=== PATIENT | male | born 1970 | race Caucasian/White ===

== ENCOUNTER 2020-12-12 14:58 | Observation (INO) ==
[2020-12-12] MEDS ORDERED: ONDANSETRON INJ 2 MG/ML 2 ML VIAL IV STA (17:18)
[2020-12-12] MEDS ORDERED: fentaNYL citrate 100 MCG/2 ML VIAL IV STA (17:18)
[2020-12-12] MEDS ORDERED: SODIUM CHLORIDE 0.9% 1000ML 1,000 ML IV ONE (17:18)
--- NOTE | 2020-12-12 17:23 | Emergency Department Note ---
Impression & Plan Abdominal pain, Nausea & vomiting, Acute urinary retention, Hypokalemia ED Provider Note Provider: Bill Eagle MD DATE OF SERVICE: 12/12/2020 CHIEF COMPLAINT: Abdominal pain, nausea and vomiting HISTORY OF PRESENT ILLNESS: Patient is a 50-year-old gentleman reporting a past medical history of enlarged prostate and renal injury presenting here today stating over the past 2 days he has a gradual onset of some diffuse abdominal pain. Reports significant nausea and vomiting and states he has not been able to eat or drink much over the last day or 2. Patient reports some myalgias and muscle cramps. Denies significant chest pain or shortness of breath. Patient denies fever cough. Patient states he feels similar when he had acute renal injury before; reports this happened when he was in [place]. 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 Has not been able to sleep well overnight due to the pain. Patient states he is not moved his bowels or had flatulence over the last 36 hours. Patient does have a distant history of a bowel obstruction. Patient does report some abdominal distention. REVIEW OF SYSTEMS: A total of 10 review of systems was obtained and negative except as stated above in the HPI. 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 NECK: Trachea midline. Supple. ENT: Mucous membranes pink and moist. LUNGS: Airway patent. No retractions. Breath sounds clear HEART: Regular bradycardic rate and rhythm. No chest wall tenderness ABDOMEN: Soft with some mild diffuse abdominal tenderness with a slightly protruding umbilicus. BACK: No midline tenderness, No bilateral flank tenderness. SKIN: Acyanotic, warm, dry, without rashes EXTREMITIES: Without swelling, tenderness or deformity NEUROLOGICAL: No focal deficits. No aphasia. No facial droop or slurred speech. Normal strength and tone in the extremities. Sensation to gross touch normal. Ambulatory. EK bpm sinus bradycardia no PVCs or PACs. No acute ST segment elevation or depression with some baseline artifact. QTC 433. CONTINUOUS CARDIAC MONITORING: was ordered and showed a heart rate of 50s-70s bpm in normal sinus rhythm to sinus bradycardia Patient's laboratory studies and imaging reviewed. Differential includes Appendicitis, testicular torsion, infections, diverticulitis, UTI, obstruction, mesenteric ischemia, aortic pathology, inflammatory bowel disease, renal colic, PUD, pancreatitis, biliary pathology, hernia, volvulus, constipation, as well as other pathologies. IMPRESSION/MEDICAL DECISION MAKING: Patient is complaining of nausea vomiting and feeling very thirsty as well as some diffuse abdominal pain. No trauma reported lightheadedness. Patient reports a history of some TRIPP in the past as well as bowel obstruction. Lower suspicion for pulmonary or cardiac etiology but EKG and troponin were sent. No anemia but mild leukocytosis 12.9 is noted. Given some IV fluid hydration as well as some pain medication and IV fluid here initially. CK checked to exclude rhabdomyolysis given his complaint of diffuse muscle pains. Chest x-ray completed without evidence of acute pathology per radiology such as pneumonia, pleural effusion, pulmonary edema, pneumothorax. Blood work does note some hypokalemia of 2.8 but no severe acute renal injury. No evidence of acute hepatitis or pancreatitis based on labs. Some IV potassium supplementation was ordered. CT scan of the abdomen pelvis shows per radiology significant urinary distention. Some prostamegaly is noted. The appendix is mildly dilated but does not appear inflamed and radiology feels appendicitis unlikely and clinically I agree. No evidence of bowel obstruction likely today. Given the patient does have evidence of a significantly large bladder. Marie cath will be placed. Patient states he has had this before in the past. Patient still with episodes of dry heaves given a bit of Reglan as well as Pepcid for some heartburn complaints. Question if majority of symptoms are related to urinary retention. Given the significant mount of urine to be drained (750ml and still draining) and has hypokalemia with recurrent nausea issues feel that observation overnight would be prudent. Hospitalist to be contacted. DIAGNOSIS: Abdominal pain, acute urinary retention, nausea and vomiting, hypokalemia DISPOSITION: Hospitalist will evaluate Patient was agreeable with this plan. Discussed return precautions and advised follow up. Past Med/Surg History Social History Smoking Status: Current every day smoker Feels Safe at Home: Yes Allergies Allergies Allergy/AdvReac Type Severity Reaction Status Date / Time [id number] Allergy Unknown Uncoded 04/18/02 16:21 N Allergy Unknown Uncoded 04/18/02 16:21 Results & Data (ED) Vital Signs Vital Signs - 24 hr 12/12/20 15:07 12/12/20 19:20 Temperature 36.9 C Temperature Source Temporal Artery Scan Pulse Rate 56 L 52 L Respiratory Rate 16 14 Blood Pressure 124/83 Blood Pressure Mean 96 Pulse Oximetry 100 95 Sepsis Recent Fever Within 48 Hours No Sepsis New/Unexplained Change in Mental Status No Sepsis Action Taken by Nursing No Action Required Laboratory Data Result diagrams: 12/12/20 17:35 12/12/20 17:35 Lab Results 12/12/20 12/12/20 12/12/20 Range/Units 17:34 17:34 17:35 WBC 12.97 H (4.8-10.8) K/uL RBC 5.46 (4.7-6.1) M/uL Hgb 16.3 (14.0-18.0) g/dL Hct 46.4 (42-52) % MCV 85.0 (80-100) fL MCH 29.9 (25-34) pg MCHC 35.1 (32-36) g/dL RDW Std Deviation 41.6 (36.4-46.3) fL RDW Coeff of Yesy 13.4 (11.5-14.5) % Plt Count 299 (130-400) K/uL MPV 9.5 (7.4-10.4) fL Immature Gran % (Auto) 0.2 % Neut % (Auto) 88.0 % Lymph % (Auto) 6.5 % Otero % (Auto) 5.2 % Eos % (Auto) 0.0 % Baso % (Auto) 0.1 % Neut # (Auto) 11.41 H (1.4-6.5) K/uL Lymph # (Auto) 0.84 L (1.2-3.4) K/uL Otero # (Auto) 0.68 H (0.11-0.59) K/uL Eos # (Auto) 0.00 (0-0.5) K/uL Baso # (Auto) 0.01 (0-0.2) K/uL Immature Gran # (Auto) 0.03 H (0.00-0.02) K/uL Sodium (136-145) mmol/L Potassium (3.5-5.1) mmol/L Chloride (98-107) mmol/L Carbon Dioxide (21-32) mmol/L Anion Gap (3-11) BUN (7-18) mg/dl Creatinine (0.6-1.4) mg/dl Est Cr Clr Drug Dosing ml/min Est GFR ( Amer) ml/min Est GFR (Non-Af Amer) ml/min BUN/Creatinine Ratio (10-20) Glucose (70-99) mg/dl Calcium (8.5-10.1) mg/dl Magnesium (1.8-2.4) mg/dl Total Bilirubin (0.2-1) mg/dl AST (15-37) U/L ALT (12-78) U/L Alkaline Phosphatase (45-117) U/L Total Creatine Kinase (39-308) U/L Troponin I (0-0.045) ng/ml Total Protein (6.4-8.2) gm/dl Albumin (3.4-5.0) gm/dl Globulin (2.5-4.0) gm/dl Albumin/Globulin Ratio (0.9-2) Lipase (73-393) U/L COVID-19 Eval Order Covid19 at [facility] SARS-CoV-2 (PCR) NEGATIVE (Negative) 12/12/20 Range/Units 17:35 WBC (4.8-10.8) K/uL RBC (4.7-6.1) M/uL Hgb (14.0-18.0) g/dL Hct (42-52) % MCV (80-100) fL MCH (25-34) pg MCHC (32-36) g/dL RDW Std Deviation (36.4-46.3) fL RDW Coeff of Yesy (11.5-14.5) % Plt Count (130-400) K/uL MPV (7.4-10.4) fL Immature Gran % (Auto) % Neut % (Auto) % Lymph % (Auto) % Otero % (Auto) % Eos % (Auto) % Baso % (Auto) % Neut # (Auto) (1.4-6.5) K/uL Lymph # (Auto) (1.2-3.4) K/uL Otero # (Auto) (0.11-0.59) K/uL Eos # (Auto) (0-0.5) K/uL Baso # (Auto) (0-0.2) K/uL Immature Gran # (Auto) (0.00-0.02) K/uL Sodium 138 (136-145) mmol/L Potassium 2.8 L (3.5-5.1) mmol/L Chloride 99 (98-107) mmol/L Carbon Dioxide 30 (21-32) mmol/L Anion Gap 9.0 (3-11) BUN 22 H (7-18) mg/dl Creatinine 1.11 (0.6-1.4) mg/dl Est Cr Clr Drug Dosing 70.0 ml/min Est GFR ( Amer) 89.9 ml/min Est GFR (Non-Af Amer) 77.6 ml/min BUN/Creatinine Ratio 20.0 (10-20) Glucose 153 H (70-99) mg/dl Calcium 9.7 (8.5-10.1) mg/dl Magnesium 2.5 H (1.8-2.4) mg/dl Total Bilirubin 0.6 (0.2-1) mg/dl AST 13 L (15-37) U/L ALT 19 (12-78) U/L Alkaline Phosphatase 137 H (45-117) U/L Total Creatine Kinase 87 (39-308) U/L Troponin I < 0.015 (0-0.045) ng/ml Total Protein 8.5 H (6.4-8.2) gm/dl Albumin 4.3 (3.4-5.0) gm/dl Globulin 4.2 H (2.5-4.0) gm/dl Albumin/Globulin Ratio 1.0 (0.9-2) Lipase 47 L (73-393) U/L COVID-19 Eval Order SARS-CoV-2 (PCR) (Negative) Administered Medications Discontinued Medications Fentanyl Citrate (Fentanyl Citrate 100 Mcg/2 Ml Vial) 50 mcg IV NOW STA Stop: 12/12/20 17:19 Last Admin: 12/12/20 18:08 Dose: 50 mcg Documented by: [id number] Sodium Chloride (Nss 1000ml) 1,000 mls @ 999 mls/hr IV .Q1H1M ONE Stop: 12/12/20 18:18 Last Infusion: 12/12/20 19:15 Dose: 0 mls/hr Documented by: [id number] Admin: 12/12/20 18:08 Dose: 999 mls/hr Documented by: [id number] Potassium Chloride (K Kevin / Wtr) 10 meq in 100 mls @ 100 mls/hr IV ONE ONE Stop: 12/12/20 19:05 Last Infusion: 12/12/20 19:34 Dose: 0 mls/hr Documented by: [id number] Admin: 12/12/20 18:11 Dose: 100 mls/hr Documented by: [id number] Ioversol (Optiray 320 100ml) 82 ml IV ONCE ONE Stop: 12/12/20 19:09 Last Admin: 12/12/20 19:09 Dose: 82 ml Documented by: [id number] Metoclopramide HCl (Metoclopramide Hcl Inj 5 Mg/Ml 2 Ml Vial) 5 mg IV ONE ONE Stop: 12/12/20 19:17 Last Admin: 12/12/20 19:21 Dose: 5 mg Documented by: [id number] Ondansetron HCl (Ondansetron Inj 2 Mg/Ml 2 Ml Vial) 4 mg IV NOW STA Stop: 12/12/20 17:19 Last Admin: 12/12/20 18:08 Dose: 4 mg Documented by: [id number] Imaging Data Radiologist's Impression: Chest X-Ray 12/12/20 17:18 XR chest 1V portable HISTORY: 50 years-old Male Resp sx c/w COVID-19 acute shortness of breath COMPARISON: None TECHNIQUE: Portable AP view of the chest FINDINGS: Cardiomediastinal and hilar silhouettes are within normal limits. No pneumothorax, pleural effusion, airspace consolidation or overt pulmonary edema. Degenerative changes of the shoulders and spine. IMPRESSION: No acute process. ACT 112: Negative or not required by law. The above report was generated using voice recognition software. It may contain grammatical, syntax or spelling errors. Electronically signed by: Jordan Rodarte M.D. 12/12/2020 5:56 PM Abdomen/Pelvis CT 12/12/20 18:[address] WITH IV CONTRAST CT DOSE: 263.45 mGy.cm HISTORY: Acute generalized abdominal pain with nausea and vomiting abd pain, n/v TECHNIQUE: Multiaxial CT images of the abdomen and pelvis were performed following the IV administration of 82 cc of Optiray, A dose lowering technique was utilized adhering to the principles of ALARA. COMPARISON STUDY: Chest radiograph of same day. FINDINGS: Clear lung bases. The imaged inferior cardiac chambers are unremarkable with coronary artery calcifications. The spleen, pancreas, gallbladder and liver appear unremarkable. There are several scattered tiny subcentimeter hypodensities of the liver which are too small to characterize however suggests probable cysts. Patency of the hepatic and portal veins. Mild thickening of the adrenal glands suggestive of hyperplasia. Unremarkable kidneys. No hydronephrosis. 11 mm hypodense focus of the inferior pole left kidney suggestive of a cyst. There is marked urinary bladder distention which measures over 20 cm in length. The prostate is heterogeneous and mildly enlarged. There is an 11 mm calculus within the dependent urinary bladder lumen. Atherosclerosis of the abdominal aorta. No adenopathy. Distended air and debris filled stomach. Mild colonic diverticulosis. No bowel obstruction or bowel wall thickening. The appendix is dilated at 9 mm however is fluid- filled and appears noninflamed. Unremarkable soft tissues. Degenerative changes of the spine, pelvis and hips. Severe right femoral acetabular osteophytes. IMPRESSION: 1. Prostamegaly with marked urinary bladder distention compatible with bladder outlet obstruction. Urinary bladder catheterization recommended. 2. Urinary bladder calculus. 3. The appendix is mildly dilated however is air-filled and appears noninflamed. Acute appendicitis is considered unlikely. 4. No bowel obstruction or bowel wall thickening. 5. Severe osteoarthritis of the right hip ACT 112: Negative or not required by law. The above report was generated using voice recognition software. It may contain grammatical, syntax or spelling errors. Electronically signed by: Jordan Rodarte M.D. 12/12/2020 7:34 PM Discharge Plan Visit Data Chief Complaint: Abdominal Pain Stated Complaint: AB PAIN ED Provider: Bill Eagle Discharge Problem: Abdominal pain, Nausea & vomiting, Acute urinary retention, Hypokalemia Patient Disposition: Being Evaluated by Hospitalist Forms Stand Alone Forms: [facility] Referrals Referrals: Dylan Bhatti MD [Primary Care Provider] - Discharge Problem: Abdominal pain Qualifiers: Abdominal location: generalized Qualified Code(s): R10.84 - Generalized abdominal pain Nausea & vomiting Qualifiers: Vomiting type: unspecified Vomiting Intractability: intractable Qualified Code(s): R11.2 - Nausea with vomiting, unspecified
[2020-12-12 17:46] LABS: Basophils # (auto) 0.01 K/uL (0-0.2); Basophils % (auto) 0.1 %; Hematocrit (blood only) 46.4 % (42-52); Hemoglobin 16.3 g/dL (14.0-18.0); Immature Granulocytes # (auto) 0.03 K/uL (0.00-0.02); Immature Granulocytes % (auto) 0.2 %; Lymphocytes # (auto) 0.84 K/uL (1.2-3.4); Lymphocytes % (auto) 6.5 %; Mean Corpuscular Hemoglobin 29.9 pg (25-34); Mean Corpuscular Hgb Conc 35.1 g/dL (32-36); Mean Platelet Volume 9.5 fL (7.4-10.4); Monocytes # (auto) 0.68 K/uL (0.11-0.59); Monocytes % (auto) 5.2 %; Neutrophils # (auto) 11.41 K/uL (1.4-6.5); Platelet Count 299 K/uL (130-400); RDW Coefficient of Variation 13.4 % (11.5-14.5); RDW Standard Deviation 41.6 fL (36.4-46.3); Red Blood Count 5.46 M/uL (4.7-6.1); White Blood Count 12.97 K/uL (4.8-10.8)
--- NOTE | 2020-12-12 17:57 | XRay Report ---
XR chest 1V portable HISTORY: 50 years-old Male Resp sx c/w COVID-19 acute shortness of breath COMPARISON: None TECHNIQUE: Portable AP view of the chest FINDINGS: Cardiomediastinal and hilar silhouettes are within normal limits. No pneumothorax, pleural effusion, airspace consolidation or overt pulmonary edema. Degenerative changes of the shoulders and spine. IMPRESSION: No acute process. ACT 112: Negative or not required by law. The above report was generated using voice recognition software. It may contain grammatical, syntax o r spelling errors. Electronically signed by: Jordan Rodarte M.D. 12/12/2020 5:56 PM
[2020-12-12 18:02] LABS: Alanine Aminotransferase 19 U/L (12-78); Albumin Level 4.3 gm/dl (3.4-5.0); Aspartate Aminotransferase 13 U/L (15-37); Blood Urea Nitrogen 22 mg/dl (7-18); Calcium 9.7 mg/dl (8.5-10.1); Carbon Dioxide 30 mmol/L (21-32); Chloride 99 mmol/L (98-107); Est GFR (African American) 89.9 ml/min; Est GFR (Non-African American) 77.6 ml/min; Glucose 153 mg/dl (70-99); Lipase 47 U/L (73-393); Magnesium 2.5 mg/dl (1.8-2.4); Potassium 2.8 mmol/L (3.5-5.1); Sodium 138 mmol/L (136-145)
[2020-12-12] MEDS ORDERED: POTASSIUM CHLORIDE / WTR 10 MEQ/100 ML PLCT IV ONE ×2 (18:06→19:48)
[2020-12-12 18:07] LABS: Alkaline Phosphatase 137 U/L (45-117); Bilirubin,Total 0.6 mg/dl (0.2-1); Creatine Kinase 87 U/L (39-308); Globulin 4.2 gm/dl (2.5-4.0); Total Protein 8.5 gm/dl (6.4-8.2); Troponin I < 0.015 ng/ml (0-0.045)
[2020-12-12] MEDS ORDERED: OPTIRAY 320 100ml IV ONE (19:08)
[2020-12-12] MEDS ORDERED: METOCLOPRAMIDE HCL INJ 5 MG/ML 2 ML VIAL IV ONE (19:16)
--- NOTE | 2020-12-12 19:35 | CT Scan Report ---
ABDOMEN AND PELVIS CT WITH IV CONTRAST CT DOSE: 263.45 mGy.cm HISTORY: Acute generalized abdominal pain with nausea and vomiting abd pain, n/v TECHNIQUE: Multiaxial CT images of the abdomen and pelvis were performed following the IV administrat ion of 82 cc of Optiray, A dose lowering technique was utilized adhering to the principles of ALARA. COMPARISON STUDY: Chest radiograph of same day. FINDINGS: Clear lung bases. The imaged inferior cardiac chambers are unremarkable with coronary arter y calcifications. The spleen, pancreas, gallbladder and liver appear unremarkable. There are several scattered tiny subcentimeter hypodensities of the liver which are too small to characterize however s uggests probable cysts. Patency of the hepatic and portal veins. Mild thickening of the adrenal gland s suggestive of hyperplasia. Unremarkable kidneys. No hydronephrosis. 11 mm hypodense focus of the inferior pole left kidney sugge stive of a cyst. There is marked urinary bladder distention which measures over 20 cm in length. The prostate is heterogeneous and mildly enlarged. There is an 11 mm calculus within the dependent urinar y bladder lumen. Atherosclerosis of the abdominal aorta. No adenopathy. Distended air and debris fill ed stomach. Mild colonic diverticulosis. No bowel obstruction or bowel wall thickening. The appendix is dilated at 9 mm however is fluid-filled and appears noninflamed. Unremarkable soft tissues. Degene rative changes of the spine, pelvis and hips. Severe right femoral acetabular osteophytes. IMPRESSION: 1. Prostamegaly with marked urinary bladder distention compatible with bladder outlet obstruction. Ur inary bladder catheterization recommended. 2. Urinary bladder calculus. 3. The appendix is mildly dilated however is air-filled and appears noninflamed. Acute appendicitis i s considered unlikely. 4. No bowel obstruction or bowel wall thickening. 5. Severe osteoarthritis of the right hip ACT 112: Negative or not required by law. The above report was generated using voice recognition software. It may contain grammatical, syntax o r spelling errors. Electronically signed by: Jordan Rodarte M.D. 12/12/2020 7:34 PM
[2020-12-12] MEDS ORDERED: POTASSIUM CHLORIDE PWD 20 MEQ PACK PO STA (20:52)
[2020-12-12] MEDS ORDERED: PROMETHAZINE 12.5 MG/50.5 ML BAG IV STA (20:52)
--- NOTE | 2020-12-12 20:53 | History & Physical Report ---
Date of Service December 12, 2020 Assessment & Plan (1) Hypokalemia: Plan: Secondary to emesis, poor p.o. intake from urinary bladder distention secondary to prostatomegaly Hyperglycemia rule out DM Ongoing tobacco abuse OBS Medical telemetry Replace potassium Initiate Flomax Continue Marie catheter Urology consult Re: Urinary retention/prostatomegaly Check hemoglobin A1c Nicotine patch as needed DVT prophylaxis. Lovenox subcu Full code Text document was generated using [employer] voice recognition software. It may contain grammatical or spelling errors. Kindly contact undersigned for clarification of any documentation item in question. History of Present Illness Chief Complaint: Abdominal pain Primary Care Provider: None History obtained from patient and records. Medical history significant for BPH, ongoing tobacco abuse. Patient has known for about 5 years of prostate enlargement. Urinary retention noted during [id number] confinements for hernia issues. Prostatic enlargement noted as incidental finding on a prior CAT scan as per patient. No hematuria symptoms. Not taking any medications as he has not seen a PCP for a few years now because of insurance issues. 2 days history of achy diffuse abdominal pain associated nausea, emesis. Usual urinary retention. No chest pain, no S OB. No fever, no chills. At the ER, Marie catheter inserted with note of bladder outlet obstruction on CAT scan. Patient currently more comfortable. 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 Allergies Allergy/AdvReac Type Severity Reaction Status Date / Time No Known Allergies Allergy Verified 12/12/20 21:03 Home Medications Medication Instructions Recorded Confirmed Type No Known Home Medications 12/12/20 12/12/20 History Past Med/Surg History Social History Smoking Status: Current every day smoker Cigarettes Per Day: 1 PPD (Camel); Second Hand Exposure: Yes; Tobacco Cessation Education Requested by Patient: No Hx Alcohol Use: No Hx Substance Use: Yes Preferred Language: Estonian Communication Ability: Effective Beliefs That Will Affect Care: None Current Living Situation: Alone Current Living Situation Comment: Lives alone in apartment Other Information That Helps Us Care for You: No Feels Safe at Home: Yes Safety Concerns: Feels Safe At This Time Assistive Devices: None Assistive Devices Comment: Pt. Supervision in room at this time Review of Systems Review of Systems: As per HPI, all 10 systems reviewed, all other ROS negative Physical Exam Physical Exam: GENERAL: Slightly uncomfortable, no respiratory distress SKIN: Normal color, warm HEENT: [place] palpebral conjunctivae, no ptosis, dry buccal mucosa NECK : Supple, no tenderness CHEST : CTA, no tenderness HEART : Bradycardic, no obvious murmurs ABDOMEN: Some distention, minimal hypogastric tenderness EXTREMITIES : No LE swelling/tenderness, no other conspicuous deformities noted NEUROLOGIC : Coherent, no facial asymmetry, no other gross focality Results & Data Results & Data ([facility]) Vital Signs (Past 12 Hours) Vital Signs Temp Pulse Resp BP Pulse Ox 12/12/20 19:20 52 L 14 95 12/12/20 15:07 36.9 C 56 L 16 124/83 100 Laboratory Results Laboratory Results WBC 12.97 K/uL (4.8-10.8) H 12/12/20 17:35 RBC 5.46 M/uL (4.7-6.1) 12/12/20 17:35 Hgb 16.3 g/dL (14.0-18.0) 12/12/20 17:35 Hct 46.4 % (42-52) 12/12/20 17:35 MCV 85.0 fL (80-100) 12/12/20 17:35 MCH 29.9 pg (25-34) 12/12/20 17:35 MCHC 35.1 g/dL (32-36) 12/12/20 17:35 RDW Std Deviation 41.6 fL (36.4-46.3) 12/12/20 17:35 RDW Coeff of Yesy 13.4 % (11.5-14.5) 12/12/20 17:35 Plt Count 299 K/uL (130-400) 12/12/20 17:35 MPV 9.5 fL (7.4-10.4) 12/12/20 17:35 Immature Gran % (Auto) 0.2 % 12/12/20 17:35 Neut % (Auto) 88.0 % 12/12/20 17:35 Lymph % (Auto) 6.5 % 12/12/20 17:35 Cataño % (Auto) 5.2 % 12/12/20 17:35 Eos % (Auto) 0.0 % 12/12/20 17:35 Baso % (Auto) 0.1 % 12/12/20 17:35 Neut # (Auto) 11.41 K/uL (1.4-6.5) H 12/12/20 17:35 Lymph # (Auto) 0.84 K/uL (1.2-3.4) L 12/12/20 17:35 Cataño # (Auto) 0.68 K/uL (0.11-0.59) H 12/12/20 17:35 Eos # (Auto) 0.00 K/uL (0-0.5) 12/12/20 17:35 Baso # (Auto) 0.01 K/uL (0-0.2) 12/12/20 17:35 Immature Gran # (Auto) 0.03 K/uL (0.00-0.02) H 12/12/20 17:35 Sodium 138 mmol/L (136-145) 12/12/20 17:35 Potassium 2.8 mmol/L (3.5-5.1) L 12/12/20 17:35 Chloride 99 mmol/L (98-107) 12/12/20 17:35 Carbon Dioxide 30 mmol/L (21-32) 12/12/20 17:35 Anion Gap 9.0 (3-11) 12/12/20 17:35 BUN 22 mg/dl (7-18) H 12/12/20 17:35 Creatinine 1.11 mg/dl (0.6-1.4) 12/12/20 17:35 Est Cr Clr Drug Dosing 70.0 ml/min 12/12/20 17:35 Est GFR ( Amer) 89.9 ml/min 12/12/20 17:35 Est GFR (Non-Af Amer) 77.6 ml/min 12/12/20 17:35 BUN/Creatinine Ratio 20.0 (10-20) 12/12/20 17:35 Glucose 153 mg/dl (70-99) H 12/12/20 17:35 Calcium 9.7 mg/dl (8.5-10.1) 12/12/20 17:35 Magnesium 2.5 mg/dl (1.8-2.4) H 12/12/20 17:35 Total Bilirubin 0.6 mg/dl (0.2-1) 12/12/20 17:35 AST 13 U/L (15-37) L 12/12/20 17:35 ALT 19 U/L (12-78) 12/12/20 17:35 Alkaline Phosphatase 137 U/L (45-117) H 12/12/20 17:35 Total Creatine Kinase 87 U/L (39-308) 12/12/20 17:35 Troponin I < 0.015 ng/ml (0-0.045) 12/12/20 17:35 Total Protein 8.5 gm/dl (6.4-8.2) H 12/12/20 17:35 Albumin 4.3 gm/dl (3.4-5.0) 12/12/20 17:35 Globulin 4.2 gm/dl (2.5-4.0) H 12/12/20 17:35 Albumin/Globulin Ratio 1.0 (0.9-2) 12/12/20 17:35 Lipase 47 U/L (73-393) L 12/12/20 17:35 COVID-19 Eval Order Covid19 at [facility] 12/12/20 17:34 SARS-CoV-2 (PCR) NEGATIVE (Negative) 12/12/20 17:34 Impressions Chest X-Ray 12/12/20 17:18 XR chest 1V portable HISTORY: 50 years-old Male Resp sx c/w COVID-19 acute shortness of breath COMPARISON: None TECHNIQUE: Portable AP view of the chest FINDINGS: Cardiomediastinal and hilar silhouettes are within normal limits. No pneumothorax, pleural effusion, airspace consolidation or overt pulmonary edema. Degenerative changes of the shoulders and spine. IMPRESSION: No acute process. ACT 112: Negative or not required by law. The above report was generated using voice recognition software. It may contain grammatical, syntax or spelling errors. Electronically signed by: Jordan Rodarte M.D. 12/12/2020 5:56 PM Abdomen/Pelvis CT 12/12/20 18:[address] WITH IV CONTRAST CT DOSE: 263.45 mGy.cm HISTORY: Acute generalized abdominal pain with nausea and vomiting abd pain, n/v TECHNIQUE: Multiaxial CT images of the abdomen and pelvis were performed following the IV administration of 82 cc of Optiray, A dose lowering technique was utilized adhering to the principles of ALARA. COMPARISON STUDY: Chest radiograph of same day. FINDINGS: Clear lung bases. The imaged inferior cardiac chambers are unremarkable with coronary artery calcifications. The spleen, pancreas, gallbladder and liver appear unremarkable. There are several scattered tiny subcentimeter hypodensities of the liver which are too small to characterize however suggests probable cysts. Patency of the hepatic and portal veins. Mild thickening of the adrenal glands suggestive of hyperplasia. Unremarkable kidneys. No hydronephrosis. 11 mm hypodense focus of the inferior pole left kidney suggestive of a cyst. There is marked urinary bladder distention which measures over 20 cm in length. The prostate is heterogeneous and mildly enlarged. There is an 11 mm calculus within the dependent urinary bladder lumen. Atherosclerosis of the abdominal aorta. No adenopathy. Distended air and debris filled stomach. Mild colonic diverticulosis. No bowel obstruction or bowel wall thickening. The appendix is dilated at 9 mm however is fluid- filled and appears noninflamed. Unremarkable soft tissues. Degenerative changes of the spine, pelvis and hips. Severe right femoral acetabular osteophytes. IMPRESSION: 1. Prostamegaly with marked urinary bladder distention compatible with bladder outlet obstruction. Urinary bladder catheterization recommended. 2. Urinary bladder calculus. 3. The appendix is mildly dilated however is air-filled and appears noninflamed. Acute appendicitis is considered unlikely. 4. No bowel obstruction or bowel wall thickening. 5. Severe osteoarthritis of the right hip ACT 112: Negative or not required by law. The above report was generated using voice recognition software. It may contain grammatical, syntax or spelling errors. Electronically signed by: Jordan Rodarte M.D. 12/12/2020 7:34 PM Diagnostic Findings EKG as per my interpretation rate 50, sinus bradycardia, normal axis, diffuse T wave flattening
[2020-12-12] MEDS ORDERED: TAMSULOSIN HCL 0.4 MG CAP PO ONE (20:56)
[2020-12-12] MEDS ORDERED: POTASSIUM CHLORIDE 40 MEQ in SODIUM CHLORIDE 0.9% 1000ML 1,000 ML IV ONE (20:59)
[2020-12-12] MEDS ORDERED: KETOROLAC TROMETHAMINE 15 MG/ML VIAL IV PRN (22:29)
[2020-12-12] MEDS ORDERED: IBUPROFEN 200 MG TAB PO PRN (22:29)
[2020-12-12] MEDS ORDERED: PROMETHAZINE HCL 12.5 MG in SODIUM CHLORIDE 0.9% 50 ML IV PRN (22:29)
[2020-12-12] MEDS ORDERED: ACETAMINOPHEN 325 MG TAB PO PRN (22:29)
[2020-12-12] MEDS: NICOTINE 21 MG/24 HR TDSY TD SCH (23:17)
[2020-12-12] MEDS ORDERED: METOCLOPRAMIDE HCL INJ 5 MG/ML 2 ML VIAL IV PRN (23:26)
[2020-12-13] MEDS ORDERED: POTASSIUM CHLORIDE PWD 20 MEQ PACK PO ONE (01:00)
[2020-12-13] MEDS: NICOTINE 21 MG/24 HR TDSY TD SCH (08:05)
[2020-12-13 08:36] LABS: Basophils # (auto) 0.01 K/uL (0-0.2); Basophils % (auto) 0.1 %; Eosinophils # (auto) 0.01 K/uL (0-0.5); Eosinophils % (auto) 0.1 %; Hematocrit (blood only) 38.6 % (42-52); Hemoglobin 13.3 g/dL (14.0-18.0); Immature Granulocytes # (auto) 0.02 K/uL (0.00-0.02); Immature Granulocytes % (auto) 0.1 %; Lymphocytes # (auto) 2.28 K/uL (1.2-3.4); Lymphocytes % (auto) 14.5 %; Mean Corpuscular Hemoglobin 29.4 pg (25-34); Mean Corpuscular Hgb Conc 34.5 g/dL (32-36); Mean Corpuscular Volume 85.2 fL (80-100); Mean Platelet Volume 9.4 fL (7.4-10.4); Monocytes # (auto) 1.52 K/uL (0.11-0.59); Monocytes % (auto) 9.7 %; Neutrophils % (auto) 75.5 %; Platelet Count 249 K/uL (130-400); RDW Coefficient of Variation 13.4 % (11.5-14.5); Red Blood Count 4.53 M/uL (4.7-6.1); White Blood Count 15.74 K/uL (4.8-10.8)
[2020-12-13 09:01] LABS: BUN Creatinine Ratio 21.4 (10-20); Calcium 8.7 mg/dl (8.5-10.1); Creatinine Clr Calc Pharmacy 79.5 ml/min; Est GFR (African American) 109.9 ml/min; Est GFR (Non-African American) 94.8 ml/min; Potassium 3.2 mmol/L (3.5-5.1)
--- NOTE | 2020-12-13 09:58 | Urology Consultation ---
Date of Consultation December 13, 2020 Assessment & Plan (1) Acute urinary retention: (2) Bladder stone: 50-year-old male who presented acutely with severely distended bladder and urinary retention. Suspect this is chronic as he reports several years of poor emptying and a history of Marie catheter placement. This is likely due to bladder outlet obstruction but he has never received an appropriate work-up. Recommend maintain Marie catheter for minimum 2 weeks due to severe distention Recommend urinalysis and urine culture if concerns on UA for infection Monitor for postobstructive diuresis. Characterized by at least 200 cc of urine output for 2 consecutive hours or more than 3 L in a 24-hour period. Can allow patient to drink to thirst for volume replacement. If requires IV fluid replacement, should be limited to no more than 75% of the prior 1 to 2 hours of urine production. I will schedule a follow-up appointment with him in clinic for void trial and to discuss management of his bladder and bladder calculus. Did discuss that he may have some permanent damage due to chronic obstruction and he may need to learn intermittent catheterization as opposed to undergoing a bladder outlet obstruction procedure or in conjunction with that. -Urology to sign off. Please call with any questions or concerns. History of Present Illness Reason for Consultation: Urinary retention, bladder calculus Attending Physician: Leonides Bello MD History of Present Illness 50-year-old male with a history of urinary retention with previous catheter placements who presented to the emergency department on 12/12/2020 due to general malaise. He was afebrile with stable vitals. Labs were significant for a mild leukocytosis of 12.97, creatinine of 1.1, and hypokalemia of 2.8.. CT scan was performed which revealed a significantly distended bladder with a bladder stone. A Marie catheter was placed. He was admitted to the medicine service. Urology was consulted for urinary retention. Patient reports he is feeling better today. Catheter is draining without issue. White blood cell count has slightly risen to 15 but creatinine has down trended. Hypokalemia slightly improved to 3.2. He reports he has had urinary retention before with catheters. He denies any dysuria, hematuria or urgency. He does endorse frequency and nocturia 2-3 times per night. He has to Valsalva maneuver to empty his bladder and does not feel as if he completely empties his bladder. He believes he may have seen a urologist several years back but was only told he had enlarged prostate. He has never been counseled on bladder outlet obstruction or any procedure. He does not take any Flomax and finasteride. He is not had any previous urologic surgeries. He has no history of urologic malignancies. He does smoke cigarettes and marijuana. 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 Allergies Allergy/AdvReac Type Severity Reaction Status Date / Time No Known Allergies Allergy Verified 12/12/20 21:03 Home Medications Medication Instructions Recorded Confirmed Type No Known Home Medications 12/12/20 12/12/20 History Patient History Social History Smoking Status: Current every day smoker Cigarettes Per Day: 1 PPD (Camel); Second Hand Exposure: Yes; Tobacco Cessation Education Requested by Patient: No Hx Alcohol Use: No Hx Substance Use: Yes Preferred Language: Czech Communication Ability: Effective Beliefs That Will Affect Care: None Current Living Situation: Alone Current Living Situation Comment: Lives alone in apartment Other Information That Helps Us Care for You: No Feels Safe at Home: Yes Safety Concerns: Feels Safe At This Time Assistive Devices: None Assistive Devices Comment: Pt. Supervision in room at this time Review of Systems Review of Systems: 14 point review of systems negative outside of what is listed above in HPI Physical Exam Physical Exam: General: Alert and oriented, no acute distress HEENT: Normocephalic, mucous membranes moist Cardiovascular: Regular rate Pulmonary: Nonlabored respirations Abdomen: Nondistended, nontender : Marie catheter draining clear yellow urine Extremities: Moves all 4 spontaneously Neuro: No gross deficits Skin: Warm, dry, no rashes noted Results & Data ([facility]) Vital Signs (Past 12 Hours) Vital Signs Temp Pulse Pulse Resp BP Pulse Ox Pulse Ox 12/13/20 07:50 36.8 C 65 18 130/72 97 12/13/20 07:18 77 12/13/20 04:00 36.9 C 64 20 114/61 97 12/12/20 23:24 53 L 12/12/20 22:30 37 C 59 L 18 136/72 96 12/12/20 22:29 37 C 59 L 16 136/72 96 96 PG Care Time/CCT Total # of Minutes Spent Total Time Spent with Patient: Total time spent is greater than 50% in coordination of care (as documented) at patient's floor/unit and/or counseling patient: Coding Level of Care Code 62946 Inpt Consult Level 5 Diagnoses Acute urinary retention R33.8 Bladder stone N21.0
--- NOTE | 2020-12-13 11:58 | Electrocardiogram Report ---
Test Reason : Blood Pressure : / mmHG Vent. Rate : 050 BPM Atrial Rate : 050 BPM P-R Int : 132 ms QRS Dur : 072 ms QT Int : 476 ms P-R-T Axes : 055 000 -11 degrees QTc Int : 433 ms Poor data quality, interpretation may be adversely affected Sinus bradycardia with sinus arrhythmia Septal infarct , age undetermined Abnormal ECG No previous ECGs available Confirmed by Hans Paez ([id number]) on 12/13/2020 11:58:39 AM Referred By: REFERRED SELF Confirmed By:Hans Paez
--- NOTE | 2020-12-13 15:11 | Hospitalist Progress Note ---
Date of Service December 13, 2020 Assessment & Plan (1) Acute urinary retention: Plan: History of BPH for the last 2 years or so Prior hospitalization with acute retention in [place] Has not been taking any medication and was admitted with acute urinary retention and may be complicated by bladder stone Appreciate urology input and recommendation Status post Marie catheter and will be there for about 2 weeks as per urologist He has been feeling much better and will follow up as an outpatient following discharge We will check urine for infection (2) Hypokalemia: Plan: Secondary to emesis, poor p.o. intake from urinary bladder distention secondary to prostatomegaly Potassium level is less than 3 Received adequate replacement and will be checked tomorrow (3) Bladder stone: Plan: Likely complicating bladder outlet obstruction Management as per urologist (4) Prostatic hypertrophy: Plan: Flomax has been added Status post Marie catheter Hyperglycemia rule out DM Hemoglobin A1c is pending Ongoing tobacco abuse Nicotine patch as needed DVT prophylaxis. Lovenox subcu Full code Plan: Likely discharge tomorrow Will need PCP appointment as an outpatient Urologist will make their own appointment in 2 weeks Admission and Anticipated Discharge Date Admission Date: December 12, 2020 Subjective 12/13/2020 The patient was seen and examined in medical telemetry unit He has been feeling much better following urinary catheter and his nausea has improved a lot Denies any fever and chills. Any abdominal pain, nausea and or vomiting Review of Systems Review of Systems: All systems reviewed and are unremarkable except as noted below Physical Exam Physical Exam: Lying in bed comfortably Constitutional: well developed, well nourished and average body habitus; not ill appearing Eyes: PERRL, conjunctivae normal, anicteric sclerae ENMT: external ear and nose normal, oropharynx normal Neck: trachea midline, no thyromegaly Respiratory: no respiratory distress and no cough Auscultation: lungs clear to auscultation bilaterally Cardiovascular: Rate/Rhythm: regular rate and regular rhythm; not tachycardic Heart Sounds: normal S1 and normal S2; no murmur Extremities: no edema Gastrointestinal (Abdomen): Inspection/Auscultation: normal bowel sounds; abdomen not distended Percussion/Palpation: abdomen soft; abdomen nontender Musculoskeletal: No acute arthritis in any joint Neurologic: Alert, awake and oriented x3. No focal sensory and motor deficit appreciated Genitourinary: Has urinary catheter in situ Lymphatic: no cervical or axillary lymphadenopathy Results & Data Results & Data ([facility]) Vital Signs (Past 12 Hours) Vital Signs Temp Pulse Pulse Resp BP Pulse Ox 12/13/20 11:44 36.8 C 57 L 18 101/58 L 98 12/13/20 07:50 36.8 C 65 18 130/72 97 12/13/20 07:18 77 12/13/20 04:00 36.9 C 64 20 114/61 97 Laboratory Results Short CBC 12/12/20 12/13/20 Range/Units 17:35 07:57 WBC 12.97 H 15.74 H (4.8-10.8) K/uL Hgb 16.3 13.3 L D (14.0-18.0) g/dL Hct 46.4 38.6 L (42-52) % Plt Count 299 249 (130-400) K/uL BMP 12/12/20 12/13/20 17:35 07:57 Sodium 138 140 Potassium 2.8 L 3.2 L Chloride 99 106 Carbon Dioxide 30 27 BUN 22 H 20 H Creatinine 1.11 0.94 Glucose 153 H 94 Calcium 9.7 8.7 Cardiac Enzymes 12/12/20 Range/Units 17:35 Total Creatine Kinase 87 (39-308) U/L Troponin I < 0.015 (0-0.045) ng/ml Liver Function 12/12/20 Range/Units 17:35 Total Bilirubin 0.6 (0.2-1) mg/dl AST 13 L (15-37) U/L ALT 19 (12-78) U/L Alkaline Phosphatase 137 H (45-117) U/L Albumin 4.3 (3.4-5.0) gm/dl Medications Administered Current Inpatient Medications Acetaminophen (Acetaminophen 325 Mg Tab) 650 mg PO Q4H PRN PRN Reason: Pain or Fever Stop: 01/11/21 22:28 Promethazine HCl 12.5 mg/ (Sodium Chloride) 50.5 mls @ 202 mls/hr IV Q6H PRN PRN Reason: Nausea And Vomiting Stop: 01/11/21 22:28 Last Infusion: 12/13/20 05:19 Dose: Infused Documented by: Ibuprofen (Ibuprofen 200 Mg Tab) 200 mg PO Q6H PRN PRN Reason: Mild Pain Stop: 01/11/21 22:28 Ketorolac Tromethamine (Ketorolac Tromethamine 15 Mg/Ml Vial) 15 mg IV Q6H PRN PRN Reason: Pain Stop: 12/17/20 22:28 Last Admin: 12/13/20 01:32 Dose: 15 mg Documented by: Metoclopramide HCl (Metoclopramide Hcl Inj 5 Mg/Ml 2 Ml Vial) 5 mg IV Q6H PRN PRN Reason: nv Stop: 01/11/21 23:25 Last Admin: 12/12/20 23:42 Dose: 5 mg Documented by: Miscellaneous (Remove Nicoderm Patch) 1 ea N/A [id number] [facility] Stop: 01/12/21 08:58 Last Admin: 12/13/20 12:32 Dose: 1 ea Documented by: Nicotine (Nicotine 21 Mg/24 Hr Tdsy) 21 mg TD QAM [facility] Stop: 01/11/21 22:49 Last Admin: 12/13/20 08:05 Dose: 21 mg Documented by: Tamsulosin HCl (Tamsulosin Hcl 0.4 Mg Cap) 0.4 mg PO HS [facility] Stop: 01/12/21 20:59
[2020-12-13] MEDS ORDERED: TAMSULOSIN HCL 0.4 MG CAP PO SCH (21:00)
[2020-12-13 22:19] LABS: Appearance Urine Clear (Clear); Bacteria Urine Automated Negative (Negative); Bilirubin Urine Negative (Negative); Blood Urine Trace (Negative); Cast Urine Automated 0 /lpf (0-5); Color Urine Yellow; Glucose Urine UA Negative (Negative); Ketones Urine Negative (Negative); Leukocyte Esterase Urine 1+ (Negative); Nitrite Urine Negative (Negative); Protein Urine Negative (Negative); RBC Urine Automated 0-4 /hpf (0-4); Specific Gravity Urine 1.009 (1.000-1.030); Urobilinogen Urine Negative (Negative)
[2020-12-14 06:35] LABS: Basophils # (auto) 0.02 K/uL (0-0.2); Basophils % (auto) 0.2 %; Eosinophils # (auto) 0.07 K/uL (0-0.5); Eosinophils % (auto) 0.8 %; Hematocrit (blood only) 39.5 % (42-52); Hemoglobin 13.1 g/dL (14.0-18.0); Immature Granulocytes # (auto) 0.02 K/uL (0.00-0.02); Immature Granulocytes % (auto) 0.2 %; Lymphocytes # (auto) 1.95 K/uL (1.2-3.4); Lymphocytes % (auto) 21.1 %; Mean Corpuscular Hemoglobin 28.9 pg (25-34); Mean Corpuscular Hgb Conc 33.2 g/dL (32-36); Mean Corpuscular Volume 87.2 fL (80-100); Mean Platelet Volume 9.4 fL (7.4-10.4); Monocytes # (auto) 1.01 K/uL (0.11-0.59); Monocytes % (auto) 10.9 %; Neutrophils # (auto) 6.19 K/uL (1.4-6.5); Neutrophils % (auto) 66.8 %; Platelet Count 228 K/uL (130-400); RDW Coefficient of Variation 13.3 % (11.5-14.5); RDW Standard Deviation 43.1 fL (36.4-46.3); Red Blood Count 4.53 M/uL (4.7-6.1); White Blood Count 9.26 K/uL (4.8-10.8)
[2020-12-14 06:59] LABS: BUN Creatinine Ratio 12.3 (10-20); Calcium 8.3 mg/dl (8.5-10.1); Est GFR (African American) 119.7 ml/min; Est GFR (Non-African American) 103.3 ml/min; Potassium 3.3 mmol/L (3.5-5.1)
[2020-12-14 08:17] LABS: Estimated Average Glucose 117 mg/dl; Hemoglobin A1C 5.7 % (4.5-5.6)
[2020-12-14] MEDS: NICOTINE 21 MG/24 HR TDSY TD SCH (08:50)
--- NOTE | 2020-12-14 12:56 | Discharge Summary ---
Date of Service December 14, 2020 Admission HPI Per Admitting Provider History obtained from patient and records. Medical history significant for BPH, ongoing tobacco abuse. Patient has known for about 5 years of prostate enlargement. Urinary retention noted during [id number]-[id number] confinements for hernia issues. Prostatic enlargement noted as incidental finding on a prior CAT scan as per patient. No hematuria symptoms. Not taking any medications as he has not seen a PCP for a few years now because of insurance issues. 2 days history of achy diffuse abdominal pain associated nausea, emesis. Usual urinary retention. No chest pain, no S OB. No fever, no chills. At the ER, Day catheter inserted with note of bladder outlet obstruction on CAT scan. Patient currently more comfortable. 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 Admission Exam Per Admitting Provider GENERAL: Slightly uncomfortable, no respiratory distress SKIN: Normal color, warm HEENT: [place] palpebral conjunctivae, no ptosis, dry buccal mucosa NECK : Supple, no tenderness CHEST : CTA, no tenderness HEART : Bradycardic, no obvious murmurs ABDOMEN: Some distention, minimal hypogastric tenderness EXTREMITIES : No LE swelling/tenderness, no other conspicuous deformities noted NEUROLOGIC : Coherent, no facial asymmetry, no other gross focality Principal Diagnosis Acute urinary retention Discharge Exam General: A&Ox3 HENT: NCAT, MMM, EOMI Eyes: PERRLA Neck: Supple, normal range of motion CVS: normal rate and rhythm Resp: b/l good breath sounds Abdomen: Soft, ND/NT, +BS Extremities: absence of any edema Neuro: face symmetric, strength grossly equal, no focal deficit Skin: warm and dr MSK: no joint swelling/erythema day catheter in place Discharge Data Allergies Allergy/AdvReac Type Severity Reaction Status Date / Time No Known Allergies Allergy Verified 12/12/20 21:03 Consultations 12/12/20 19:50 ED Decision to Admit Stat 12/12/20 22:29 Consult Urology Routine Ordered Studies 12/12/20 18:04 CT abd pelvis IV con only Stat Hospital Course (1) Hypokalemia: Acute urinary retention Hypokalemia Bladder stone Patient is a 50-year-old male who was admitted with a distended bladder and urine retention. Day catheter was placed. Urology was consulted neurology recommended to have the patient follow-up as an outpatient patient was discharged with a Day catheter was obtained which was negative denies any dys uria or concern for UTI of discharge patient was doing okay. Hemodynamically he was doing stable. Patient was discharged in stable condition. Total Time Total Time Spent Total Time Spent (In Minutes): 35 Discharge Plan Discharge Items Patient Disposition: Home - Self-Care Reason For Visit: HYPOKALEMIA Discharge Diagnosis: Acute urinary retention: Activity: Resume your previous activity Non-emergency contact: Primary Care Provider Call non-emergency contact if: your symptoms worsen Follow-up/Referrals: Levi Flores MD [Hospitalist] - (Date & Time 12/16/2020 10:00 AM Provider Levi Flores MD Department Family Medicine [facility] ) Diet: Heart Healthy Addtl Attending Provider Instructions: Follow-up with PCP and urology as an outpatient. Appointments have been requested. Pending Studies at Discharge: No Stand-Alone Forms: [place], Smoking Cessation Medications and DC Order Prescriptions: New tamsulosin 0.4 mg Capsule 0.4 mg PO HS Qty: 30 RF: 0 Discharge Orders: Discharge Order (Routine); Ordered 12/14/20 Ordered By: Luciano Moreno Admission Data Admit Date/Time: 12/12/20 20:56 Attending Provider: Luciano Moreno Admit Provider: Richmond Thao Primary Care Provider: Dylan Bhatti Other Providers: Richmond Thao ; Dylan Sanchez ; Tone Bolaños ; Jeremy Daniel ; Meena Everett ; Bg Guajardo ; Ludy Cadena ; Carlie Ureña ; Paty Velásquez ; Lanre Kumar ; Blaze Apodaca ; Susie Jain ; Lucy Velásquez ; John Johnson
== END 2020-12-14 13:41 | disposition home or self-care (01) ==
LOC: ED 14:58 → 2N 14:58 → SUATTDRO 20:56 → 2N 21:53
DX: R33.8 Other retention of urine; E87.6 Hypokalemia; N40.1 Benign prostatic hyperplasia with lower urinary tract symptoms; F17.210 Nicotine dependence, cigarettes, uncomplicated; N21.0 Calculus in bladder

== ENCOUNTER 2021-09-25 15:29 | Inpatient (IN) ==
[2021-09-25] MEDS ORDERED: ONDANSETRON INJ 2 MG/ML 2 ML VIAL IV STA (15:49)
[2021-09-25] MEDS ORDERED: MoRPHine SULFATE 4 MG/ML 1 ML CARP\\VIAL IV STA (15:49)
[2021-09-25] MEDS ORDERED: SODIUM CHLORIDE 0.9% 1000ML 1,000 ML IV ONE ×2 (15:49→17:32)
[2021-09-25 16:07] LABS: Basophils # (auto) 0.04 K/uL (0-0.2); Basophils % (auto) 0.3 %; Hematocrit (blood only) 50.5 % (40.1-51.0); Hemoglobin 17.8 g/dl (14.0-18.0); Immature Granulocytes # (auto) 0.05 K/uL (0.00-0.02); Immature Granulocytes % (auto) 0.3 %; Lymphocytes # (auto) 1.33 K/uL (1.2-3.4); Lymphocytes % (auto) 8.7 %; Mean Corpuscular Hemoglobin 29.5 pg (25.0-34.0); Mean Corpuscular Hgb Conc 35.2 g/dL (32.0-36.0); Mean Corpuscular Volume 83.7 fL (80.0-100.0); Mean Platelet Volume 9.6 fL (9.4-12.4); Monocytes # (auto) 1.11 K/uL (0.24-0.82); Monocytes % (auto) 7.2 %; Neutrophils # (auto) 12.81 K/uL (1.4-6.5); Neutrophils % (auto) 83.5 %; Platelet Count 296 K/uL (130-400); RDW Coefficient of Variation 13.2 % (11.5-14.5); RDW Standard Deviation 40.6 fL (36.4-46.3); Red Blood Count 6.03 M/uL (4.63-6.08); White Blood Count 15.34 K/ul (4.8-10.8)
[2021-09-25 17:21] LABS: Albumin Globulin Ratio 1.4 (0.9-2); Albumin Level 5.2 gm/dl (3.4-5.0); BUN Creatinine Ratio 12.2 (10-20); Bilirubin,Total 0.8 mg/dl (0.2-1.0); Calcium 10.7 mg/dl (8.5-10.1); Creatinine Clr Calc Pharmacy 24.4 ml/min; Est GFR (African American) 27.4 ml/min; Est GFR (Non-African American) 23.6 ml/min; Globulin 3.6 gm/dl (2.5-4.0); Potassium 3.1 mmol/L (3.5-5.1); Total Protein 8.8 gm/dl (6.0-8.3)
--- NOTE | 2021-09-25 18:39 | CT Scan Report ---
CT SCAN OF THE ABDOMEN AND PELVIS WITHOUT IV CONTRAST CLINICAL HISTORY: Generalized abdominal pain. Vomiting. Acute renal insufficiency. COMPARISON STUDY: Abdominal CT dated 12/12/2020. TECHNIQUE: CT scan of the abdomen and pelvis is performed from the lung bases to the proximal femora. Images are reviewed in the axial, sagittal, and coronal planes. IV contrast was not administered for this examination due to poor renal function. Note that the examination is suboptimal without oral an d IV contrast. A dose lowering technique was utilized adhering to the principles of ALARA. CT DOSE: 257.74 mGy.cm FINDINGS: Lung bases: The heart is normal in size and without pericardial effusion. The lung bases are clear no ting dependent atelectasis. A small fat-containing Bochdalek hernia is noted on the left. Liver: The unenhanced liver is normal in size, contour, and attenuation. There is no intrahepatic jeremie iary ductal dilatation. Gallbladder: Unremarkable. Spleen: Normal in size and attenuation. Pancreas: Unremarkable. Adrenal glands: Unremarkable. Kidneys: The unenhanced kidneys are normal in size and without hydronephrosis. There are no renal marcelino culi identified. There is no evidence of contour deforming renal mass lesion. Abdominal vasculature: The abdominal aorta is normal in course and caliber noting moderate atheroscle rotic calcification. Bowel: There is mild colonic diverticulosis without CT evidence of acute diverticulitis. There are si gnificantly thick-walled loops of proximal small bowel in the left abdomen with mild surrounding infi ltration. No bowel obstruction is seen. No pneumatosis intestinalis or portal venous gas is identifie d. The appendix is prominent but otherwise normal as visualized. Peritoneum: There is no intraperitoneal free air or abdominal ascites. Lymphadenopathy: None. Pelvic viscera: The prostate gland is mildly enlarged and heterogeneous. The bladder wall is thickene d and trabeculated indicating chronic outlet obstruction. Skeletal structures: No lytic or blastic lesions are seen. Advanced arthritic change is noted in the right hip. IMPRESSION: 1. There are significantly thick-walled loops of small bowel in the left abdomen with mild surroundin g inflammation. This is consistent with a nonspecific enteritis. Clinical correlation will be require d. 2. There is no bowel obstruction. 3. Mild colonic diverticulosis without CT evidence of acute diverticulitis. 4. Prostatomegaly with evidence of chronic bladder outlet obstruction. 5. Additional findings as above. ACT 112: Negative or not required by law. Electronically signed by: Everardo Ngo M.D. 09/25/2021 6:37 PM
--- NOTE | 2021-09-25 21:05 | Emergency Department Note ---
History of Present Illness General Chief complaint: Vomiting Stated complaint: VOMITING Time Seen by Provider: 09/25/21 15:34 Source: patient Mode of arrival: ambulatory Limitations: no limitations History of Present Illness Maximum Pain Intensity: 9 This patient is a 51-year-old male who presents to the emergency department for evaluation of vomiting and dehydration. Patient states that he has been vomiting for 4 to 5 days. He has been unable to keep anything down. He reports some generalized abdominal discomfort. He was seen here 3 days ago and given some medication but states that about 6 hours after returning home his vomiting started again. He denies any fever/chills or diarrhea. Home Medications Medication Instructions Recorded Confirmed Type tamsulosin 0.4 mg capsule 0.4 mg PO HS #30 caps 12/14/20 09/25/21 Rx famotidine 20 mg tablet 20 mg PO BID #20 tabs 09/23/21 09/25/21 Rx ondansetron 4 mg disintegrating 4 mg PO Q6H PRN nausea and 09/23/21 09/25/21 Rx tablet vomiting #14 tabs Allergies Allergy/AdvReac Type Severity Reaction Status Date / Time No Known Allergies Allergy Verified 09/25/21 15:59 Past Med/Surg History Medical History Anxiety Arthritis BPH (benign prostatic hyperplasia) Marie catheter in place GERD (gastroesophageal reflux disease) History of asthma Hx of hepatitis Hepatitis B (1984) Kidney stones Post traumatic stress disorder Prediabetes Restless leg syndrome Surgical History History of cystoscopy History of hernia surgery History of open reduction and internal fixation (ORIF) procedure RT WRIST (HARDWARE REMOVED) History of tooth extraction Family History Father Diabetes Mother Breast cancer Other No family history of adverse response to anesthesia Social History Smoking Status: Current every day smoker Tobacco Type: Cigarettes Cigarettes Per Day: 1 PPD (Camel); Second Hand Exposure: Yes; Hx Alcohol Use: No Hx Substance Use: Yes Preferred Language: Bulgarian Communication Ability: Effective Insole Department Worker Required: No Beliefs That Will Affect Care: None Current Living Situation: Alone Current Living Situation Comment: Lives alone in apartment Feels Safe at Home: Yes Assistive Devices: None Review of Systems A total of 10 systems reviewed and were otherwise negative Physical Exam Vital Signs Vital Signs - 24 hr 09/25/21 15:32 09/25/21 16:00 09/25/21 16:02 Temperature 36.9 C Temperature Source Oral Pulse Rate 108 H Pulse Rate [Right Finger] 67 Pulse Rhythm [Right Finger] Regular Respiratory Rate 18 20 Respiratory Effort / Characteristics Non-Labored Labored Respiratory Depth Normal Normal Blood Pressure 136/97 Blood Pressure [Right Arm] 144/102 H Blood Pressure Mean 110 Blood Pressure Mean [Right Arm] 116 Pulse Oximetry 96 98 95 Oxygen Delivery Method Room Air Room Air Room Air Sepsis Recent Fever Within 48 Hours No Sepsis New/Unexplained Change in Mental Status No Sepsis Action Taken by Nursing No Action Required 09/25/21 18:11 09/25/21 20:09 Temperature Temperature Source Pulse Rate Pulse Rate [Right Finger] 73 60 Pulse Rhythm [Right Finger] Respiratory Rate 18 18 Respiratory Effort / Characteristics Non-Labored Non-Labored Respiratory Depth Normal Normal Blood Pressure Blood Pressure [Right Arm] 137/80 147/81 H Blood Pressure Mean Blood Pressure Mean [Right Arm] 99 103 Pulse Oximetry 97 96 Oxygen Delivery Method Room Air Room Air Sepsis Recent Fever Within 48 Hours Sepsis New/Unexplained Change in Mental Status Sepsis Action Taken by Nursing VITALS: Vitals are noted on the nurse's note and reviewed by myself. GENERAL: This is a 51-year-old male, moderately ill-appearing. SKIN: The skin was without rashes. EARS: External auditory canals clear, tympanic membranes pearly begum without erythema or effusion bilaterally. EYES: Pupils equal round and reactive to light and accommodation. NOSE: Patent, turbinates without inflammation or discharge. MOUTH: Mucous membranes dry. NECK: Supple without nuchal rigidity. No lymphadenopathy. HEART: Regular rate and rhythm without murmurs gallops or rubs. LUNGS: Clear to auscultation bilaterally without wheezes, rales or rhonchi. ABDOMEN: Positive bowel sounds x 4. Soft, generalized tenderness to palpation. No guarding or rebound tenderness. NEURO: Patient was alert and oriented to person place and time. Course Administered Medications Discontinued Medications Sodium Chloride (Nss 1000ml) 1,000 mls @ 999 mls/hr IV .Q1H1M ONE Stop: 09/25/21 16:49 Last Infusion: 09/25/21 16:59 Dose: 0 mls/hr Documented By: Admin: 09/25/21 15:55 Dose: 999 mls/hr Documented By: CAROL Sodium Chloride (Nss 1000ml) 1,000 mls @ 999 mls/hr IV .Q1H1M ONE Stop: 09/25/21 18:32 Last Infusion: 09/25/21 19:17 Dose: 0 mls/hr Documented By: Admin: 09/25/21 18:10 Dose: 999 mls/hr Documented By: CAROL Morphine Sulfate (Morphine Sulfate 4 Mg/Ml 1 Ml Carp\Vial) 4 mg IV NOW STA Stop: 09/25/21 15:50 Last Admin: 09/25/21 15:55 Dose: 4 mg Documented By: CAROL Ondansetron HCl (Ondansetron Inj 2 Mg/Ml 2 Ml Vial) 4 mg IV NOW STA Stop: 09/25/21 15:50 Last Admin: 09/25/21 15:55 Dose: 4 mg Documented By: CAROL Medical Decision Making Differential Diagnosis Gastroenteritis, food borne illness, infections, appendicitis, diverticulitis, inflammatory bowel disease, obstruction, GI bleed, biliary pathology, volvulus, as well as other pathologies. Home Medications Current Medication List: was personally reviewed by me Laboratory Data Attestation: I reviewed the patient's lab results. Result diagrams: 09/25/21 15:50 09/25/21 15:50 Lab Results 09/25/21 09/25/21 09/25/21 Range/Units 15:50 15:50 18:51 WBC 15.34 H (4.8-10.8) K/ul RBC 6.03 (4.63-6.08) M/uL Hgb 17.8 (14.0-18.0) g/dl Hct 50.5 (40.1-51.0) % MCV 83.7 (80.0-100.0) fL MCH 29.5 (25.0-34.0) pg MCHC 35.2 (32.0-36.0) g/dL RDW Std Deviation 40.6 (36.4-46.3) fL RDW Coeff of Yesy 13.2 (11.5-14.5) % Plt Count 296 (130-400) K/uL MPV 9.6 (9.4-12.4) fL Immature Gran % (Auto) 0.3 % Neut % (Auto) 83.5 % Lymph % (Auto) 8.7 % Patrick % (Auto) 7.2 % Eos % (Auto) 0.0 % Baso % (Auto) 0.3 % Neut # (Auto) 12.81 H (1.4-6.5) K/uL Lymph # (Auto) 1.33 (1.2-3.4) K/uL Patrick # (Auto) 1.11 H (0.24-0.82) K/uL Eos # (Auto) 0.00 (0-0.50) K/uL Baso # (Auto) 0.04 (0-0.2) K/uL Immature Gran # (Auto) 0.05 H (0.00-0.02) K/uL Sodium 141 (136-145) mmol/L Potassium 3.1 L (3.5-5.1) mmol/L Chloride 101 (98-107) mmol/L Carbon Dioxide 24 (21-32) mmol/L Anion Gap 16 H (3-11) BUN 36 H (6-23) mg/dl Creatinine 2.95 H (0.6-1.4) mg/dl Est Cr Clr Drug Dosing 24.4 ml/min Est GFR ( Amer) 27.4 ml/min Est GFR (Non-Af Amer) 23.6 ml/min BUN/Creatinine Ratio 12.2 (10-20) Glucose 144 H (70-99(Fasting)) mg/dl Calcium 10.7 H (8.5-10.1) mg/dl Total Bilirubin 0.8 (0.2-1.0) mg/dl AST 16 (13-39) U/L ALT 22 (7-52) U/L Alkaline Phosphatase 129 H (34-104) U/L Total Protein 8.8 H (6.0-8.3) gm/dl Albumin 5.2 H (3.4-5.0) gm/dl Globulin 3.6 (2.5-4.0) gm/dl Albumin/Globulin Ratio 1.4 (0.9-2) Lipase 8 L (11-82) U/L SARS-CoV-2, RNA, NAAT NEGATIVE (NEGATIVE) Imaging Data Attestation: I personally reviewed and interpreted this imaging study as follows: Radiologist's Impression: Abdomen/Pelvis CT 09/25/21 17:26 CT SCAN OF THE ABDOMEN AND PELVIS WITHOUT IV CONTRAST CLINICAL HISTORY: Generalized abdominal pain. Vomiting. Acute renal insufficiency. COMPARISON STUDY: Abdominal CT dated 12/12/2020. TECHNIQUE: CT scan of the abdomen and pelvis is performed from the lung bases to the proximal femora. Images are reviewed in the axial, sagittal, and coronal planes. IV contrast was not administered for this examination due to poor renal function. Note that the examination is suboptimal without oral and IV contrast. A dose lowering technique was utilized adhering to the principles of ALARA. CT DOSE: 257.74 mGy.cm FINDINGS: Lung bases: The heart is normal in size and without pericardial effusion. The lung bases are clear noting dependent atelectasis. A small fat-containing Bochdalek hernia is noted on the left. Liver: The unenhanced liver is normal in size, contour, and attenuation. There is no intrahepatic biliary ductal dilatation. Gallbladder: Unremarkable. Spleen: Normal in size and attenuation. Pancreas: Unremarkable. Adrenal glands: Unremarkable. Kidneys: The unenhanced kidneys are normal in size and without hydronephrosis. There are no renal calculi identified. There is no evidence of contour deforming renal mass lesion. Abdominal vasculature: The abdominal aorta is normal in course and caliber noting moderate atherosclerotic calcification. Bowel: There is mild colonic diverticulosis without CT evidence of acute diverticulitis. There are significantly thick-walled loops of proximal small bowel in the left abdomen with mild surrounding infiltration. No bowel obstruction is seen. No pneumatosis intestinalis or portal venous gas is identified. The appendix is prominent but otherwise normal as visualized. Peritoneum: There is no intraperitoneal free air or abdominal ascites. Lymphadenopathy: None. Pelvic viscera: The prostate gland is mildly enlarged and heterogeneous. The bladder wall is thickened and trabeculated indicating chronic outlet obstruction. Skeletal structures: No lytic or blastic lesions are seen. Advanced arthritic change is noted in the right hip. IMPRESSION: 1. There are significantly thick-walled loops of small bowel in the left abdomen with mild surrounding inflammation. This is consistent with a nonspecific enteritis. Clinical correlation will be required. 2. There is no bowel obstruction. 3. Mild colonic diverticulosis without CT evidence of acute diverticulitis. 4. Prostatomegaly with evidence of chronic bladder outlet obstruction. 5. Additional findings as above. ACT 112: Negative or not required by law. Electronically signed by: Everardo Ngo M.D. 09/25/2021 6:37 PM MDM Narrative Continuous equipment monitor phototypesetting: Order was placed for continuous equipment monitor phototypesetting. Patient was placed on the equipment monitor phototypesetting. Patient was noted to be in normal sinus rhythm at an initial rate of 80 bpm. The patient is a 51-year-old male who presents today complaining of vomiting, abdominal pain and dehydration. CT scan shows findings consistent with a gastroenteritis. Patient found to have an TRIPP with creatinine of 2.95, baseline around 1.2. Patient given IV hydration, pain medication and Zofran for nausea. Case was discussed [facility] the [facility] who agreed to evaluate the patient for further care. Impression & Plan Acute kidney injury, Dehydration, Vomiting Discharge Plan Visit Data Chief Complaint: Vomiting Stated Complaint: VOMITING ED Provider: Ravin Mohr ED Midlevel Provider: Aurelia Cherry Discharge Problem: Acute kidney injury, Dehydration, Vomiting Forms [facility] Prescriptions Prescriptions: No Action tamsulosin 0.4 mg Capsule 0.4 mg PO HS Qty: 30 0RF famotidine 20 mg tablet 20 mg PO BID Qty: 20 0RF ondansetron 4 mg tablet,disintegrating 4 mg PO Q6H PRN (Reason: nausea and vomiting) Qty: 14 0RF Referrals Referrals: Levi Flores MD [Primary Care Provider] -
--- NOTE | 2021-09-25 21:26 | History and Physical Report ---
DATE OF ADMISSION: 09/25/2021. CHIEF COMPLAINT: Nausea, vomiting. HISTORY OF PRESENT ILLNESS: This 51-year-old male with past medical history significant for prediabetes, BPH, status post TURP, history of osteoarthritis of both hips, adhesive capsulitis of shoulder, history of hepatitis B, presents with ongoing nausea, vomiting for the last 3 days and abdominal pain, not able to eat anything. He was in the ER yesterday and did okay and got discharged. Comes back again as his symptoms are not getting better. He also had fever and chills, but today he is afebrile. Has a somewhat mild headache. Denies any earache, no runny nose. Has some sore throat, no cough, no chest pain, no shortness of breath. His abdominal pain is moderate in nature. He is somewhat constipated because he is not eating much and also not making much urine because he thinks he is dehydrated. No swelling in the legs. Currently, hemodynamically stable. ALLERGIES: No known drug allergies. PAST MEDICAL HISTORY: As mentioned above. PAST SURGICAL HISTORY: Excision of pilonidal cyst. MEDICATIONS: The patient is on Flomax 0.4 mg p.o. at bedtime, famotidine 20 mg p.o. b.i.d. FAMILY HISTORY: Significant for no family history on file. SOCIAL HISTORY: Single. Smokes on an average half-pack a day for 10 years. Alcohol occasional. No drug use. REVIEW OF SYSTEMS: As per HPI. Rest of the review of systems is negative. PHYSICAL EXAMINATION: GENERAL: The patient is of moderate build, not in acute distress. VITAL SIGNS: Temperature 36.9, pulse 60, respiratory rate 18, blood pressure 147/81, oxygen 96% on room air. HEENT: Pupils equal, round and reactive to light. Oral mucosa moist. NECK: No JVD, no neck masses. CARDIOVASCULAR: S1 and S2 heard. Regular rate and rhythm. No murmur, no gallop. RESPIRATORY SYSTEM: Normal AP diameter. No accessory muscle use. No wheezing, no crackles. ABDOMEN: Soft, bowel sounds present. Mild diffuse discomfort. No guarding, no rigidity, no distention. CENTRAL NERVOUS SYSTEM: Cranial nerves II through XII are grossly intact, nonfocal. EXTREMITIES: No edema, no erythema. LABORATORY DATA: WBC 15.3, hemoglobin 17.8, hematocrit 50.5, platelets 296. Sodium 141, potassium 3.1, chloride 101, bicarb 24, BUN 36, creatinine 2.95. Serum glucose 144, calcium 10.7, total bilirubin 0.8, AST 16, ALT 22, alkaline phosphatase 129. Lipase is 8. SARS-CoV-2 rapid test negative. IMAGING: CT abdomen and pelvis without IV contrast: Significantly thick-walled loops of small bowel in the left abdomen with mild surrounding inflammatory changes consistent with nonspecific enteritis. No bowel obstruction. Mild colonic diverticulosis. Prostatomegaly with evidence of chronic bladder outlet obstruction. ASSESSMENT AND PLAN: This 51-year-old male presents with ongoing nausea, vomiting and acute kidney injury. 1. Nausea, vomiting: CT scan showing nonspecific enteritis, possibly viral gastroenteritis. We will keep him n.p.o. for now, IV fluids, IV antiemetics, IV pain medications p.r.n. We will closely monitor in the hospital. 2. Acute kidney injury: CR 2.9. Probably secondary to above. The patient has history of benign prostatic hyperplasia and transurethral resection of the prostate. We will monitor for any urinary retention with bladder scans. Getting fluids. Avoid nephrotoxic agents. Follow the repeat laboratories in the a.m. 3. History of benign prostatic hyperplasia: Continue his Flomax. 4. Hypokalemia: We will replace. 5. Prediabetes. Will follow hba1c levels. 6. Deep venous thrombosis prophylaxis: Heparin subcutaneously. DISPOSITION: Closely monitor in the medical floor. PT, OT prior to discharge. Social service to help with discharge planning. Job ID: [id number] [facility]
[2021-09-25] MEDS ORDERED: POTASSIUM CHLORIDE 20 MEQ/15 ML UDC PO STA (22:17)
[2021-09-25] MEDS ORDERED: HYDROmorphone INJ 0.5 MG/0.5 ML SYR IV PRN (22:17)
[2021-09-25] MEDS: POTASSIUM CHLORIDE / WTR 10 MEQ/100 ML PLCT IV SCH ×2 (22:51→23:51)
[2021-09-25] MEDS: ONDANSETRON INJ 2 MG/ML 2 ML VIAL IV PRN (22:51)
[2021-09-25] MEDS: D5W AND 1/2NSS 1,000 ML IV SCH (22:51)
[2021-09-25] MEDS: FAMOTIDINE 20 MG TAB PO SCH (22:55)
[2021-09-25] MEDS: TAMSULOSIN HCL 0.4 MG CAP PO SCH (22:55)
[2021-09-25] MEDS: HEPARIN SOD 5,000 UNIT/0.5 ML VIAL SQ SCH (22:55)
[2021-09-25 23:31] LABS: Appearance Urine Clear (Clear); Bacteria Urine Automated Negative (Negative); Bilirubin Urine Negative (Negative); Blood Urine Negative (Negative); Color Urine Dark Yellow; Epithelial Cell Urine Auto >30 /lpf (0-5); Glucose Urine UA Negative (Negative); Ketones Urine Trace (Negative); Leukocyte Esterase Urine Trace (Negative); Nitrite Urine Negative (Negative); Protein Urine 2+ (Negative); Specific Gravity Urine 1.024 (1.000-1.030); Urobilinogen Urine Negative (Negative); pH Urine 5.5 (4.5-7.5)
[2021-09-25 23:35] LABS: Cast Urine Automated >30 /lpf (0-5)
[2021-09-25] MEDS: NICOTINE 21 MG/24 HR TDSY TD SCH (23:54)
[2021-09-26] MEDS: POTASSIUM CHLORIDE / WTR 10 MEQ/100 ML PLCT IV SCH ×2 (00:52→01:56)
[2021-09-26] MEDS ORDERED: PROMETHAZINE HCL 12.5 MG in SODIUM CHLORIDE 0.9% 50 ML IV STA (02:04)
[2021-09-26] MEDS: D5W AND 1/2NSS 1,000 ML IV SCH ×3 (05:50→20:04)
[2021-09-26] MEDS: HEPARIN SOD 5,000 UNIT/0.5 ML VIAL SQ SCH (05:51)
[2021-09-26] MEDS: ONDANSETRON INJ 2 MG/ML 2 ML VIAL IV PRN (05:52)
[2021-09-26 06:18] LABS: Basophils # (auto) 0.02 K/uL (0-0.2); Basophils % (auto) 0.2 %; Eosinophils # (auto) 0.01 K/uL (0-0.50); Eosinophils % (auto) 0.1 %; Hematocrit (blood only) 41.7 % (40.1-51.0); Immature Granulocytes # (auto) 0.03 K/uL (0.00-0.02); Immature Granulocytes % (auto) 0.3 %; Lymphocytes # (auto) 1.42 K/uL (1.2-3.4); Lymphocytes % (auto) 15.4 %; Mean Corpuscular Hemoglobin 29.3 pg (25.0-34.0); Mean Corpuscular Hgb Conc 33.6 g/dL (32.0-36.0); Mean Corpuscular Volume 87.2 fL (80.0-100.0); Mean Platelet Volume 9.4 fL (9.4-12.4); Monocytes % (auto) 16.3 %; Neutrophils # (auto) 6.24 K/uL (1.4-6.5); Neutrophils % (auto) 67.7 %; Platelet Count 213 K/uL (130-400); RDW Coefficient of Variation 13.2 % (11.5-14.5); RDW Standard Deviation 42.3 fL (36.4-46.3); Red Blood Count 4.78 M/uL (4.63-6.08); White Blood Count 9.22 K/ul (4.8-10.8)
[2021-09-26 06:39] LABS: BUN Creatinine Ratio 22.4 (10-20); Calcium 8.3 mg/dl (8.5-10.1); Creatinine Clr Calc Pharmacy 55.4 ml/min; Est GFR (African American) 71.1 ml/min; Est GFR (Non-African American) 61.3 ml/min; Magnesium 1.9 mg/dl (1.7-2.4); Phosphorus 2.7 mg/dl (2.5-4.9); Potassium 3.4 mmol/L (3.5-5.1)
[2021-09-26] MEDS ORDERED: POTASSIUM CHLORIDE CRTAB 20 MEQ TABCR PO ONE (08:04)
[2021-09-26] MEDS: NICOTINE 21 MG/24 HR TDSY TD SCH (09:08)
[2021-09-26] MEDS: FAMOTIDINE 20 MG TAB PO SCH (09:08)
[2021-09-26] MEDS: ACETAMINOPHEN 325 MG TAB PO PRN ×2 (09:12→19:15)
[2021-09-26] MEDS ORDERED: ALUMINUM/MAGNESIUM SUSP 30 ML UDC PO PRN (10:49)
[2021-09-26] MEDS ORDERED: ONDANSETRON INJ 2 MG/ML 2 ML VIAL IV PRN (10:51)
--- NOTE | 2021-09-26 11:00 | Hospitalist Progress Note ---
Date of Service September 26, 2021 Assessment & Plan (1) Gastroenteritis: (2) Acute kidney injury: (3) Dehydration: (4) Nausea & vomiting: (5) Hypokalemia: Plan 51 year old male who presented to the ED 09/25 with N/V/abd pain and diarrhea ongoing for the past week, started on 09/[address] A/P 09/25 1. There are significantly thick-walled loops of small bowel in the left abdomen with mild surrounding inflammation. This is consistent with a nonspecific enteritis. Clinical correlation will be required. 2. There is no bowel obstruction. 3. Mild colonic diverticulosis without CT evidence of acute diverticulitis. 4. Prostatomegaly with evidence of chronic bladder outlet obstruction. N/V/Diarrhea/Abd pain- CT AP with non specific enteritis as stated above. No blood in vomit or stool. Abd benign. Non toxic. Lipase, LFTs normal. Will send stool cultures. Probable viral gastroenteritis. Continue symptomatic management with IVF, Iv zofran prn, clear liquid diet as tolerated. If doesn't improve, will consult GI. TRIPP- prerenal due to poor oral intake and d/t GI loss. Cr improving with IVF, will continue. Cr 2.95->1.34. baseline Cr of 0.7-0.9. Leucocytosis- likely reactive, resolved. Urine clx pending. Afebrile, non toxic. GERD- will start on IV PPI. Change to po when tolerating Acute malnutrition- States lost 19 lb over the past week due to not being able to meet his nutritional needs due to N/V. BMI 19. Should improve once symptoms resolved and appetite/oral intake improves. Consider dietitian eval. Hypokalemia- mild, repleted, recheck in am H/o BPH s/p TURP- continue flomax. voiding without issues. DVT ppx- sc lovenox Dispo- Pending symptomatic improvement. Admission and Anticipated Discharge Date Admission Date: September 25, 2021 Subjective Continues with nausea, vomiting with any oral intake. Continues with heart burn symptoms. Pain tolerable. Had small diarrhea a while ago. No blood in vomiting or diarrhea. States he has lost 19 lb over the past week due to not being able to eat (Wt down from 150 to 131 lb). States had UGI endoscopy done about 15 years ago which showed GERD and hiatal hernia. Doesn't take antiGERD medications. Denies any fever, chills, chest pain, shortness of breath. Denies any unusual food or fluid intake when this episode started last week. Physical Exam Physical Exam: General: Lying comfortably in bed, not in distress, on room air HEENT: EOMI, WALDO, MMM Chest: Clear breath sounds bilaterally, no wheezes or crackles CVS: Regular rate and rhythm, normal heart sounds, no murmur Abdomen: Soft, non tender, not distended, normal bowel sounds Neuro: Awake, alert, oriented, conversing well, non focal Extremities: No cyanosis, clubbing or edema Results & Data Results & Data ([facility]) Vital Signs (Past 12 Hours) Vital Signs Temp Pulse Resp BP Pulse Ox 09/26/21 07:45 36.5 C 52 L 16 96/57 L 97 Laboratory Results Short CBC 09/25/21 09/26/21 Range/Units 15:50 05:32 WBC 15.34 H 9.22 (4.8-10.8) K/ul Hgb 17.8 14.0 D (14.0-18.0) g/dl Hct 50.5 41.7 (40.1-51.0) % Plt Count 296 213 (130-400) K/uL BMP 09/25/21 09/26/21 15:50 05:32 Sodium 141 140 Potassium 3.1 L 3.4 L Chloride 101 107 Carbon Dioxide 24 27 BUN 36 H 30 H Creatinine 2.95 H 1.34 D Glucose 144 H 106 H Calcium 10.7 H 8.3 L D Liver Function 09/25/21 Range/Units 15:50 Total Bilirubin 0.8 (0.2-1.0) mg/dl AST 16 (13-39) U/L ALT 22 (7-52) U/L Alkaline Phosphatase 129 H (34-104) U/L Albumin 5.2 H (3.4-5.0) gm/dl Urine 09/25/21 Range/Units 23:08 Urine Color Dark Yellow Urine Appearance Clear (Clear) Urine pH 5.5 (4.5-7.5) Ur Specific [place] 1.024 (1.000-1.030) Urine Protein 2+ H (Negative) Urine Glucose (UA) Negative (Negative) Medications Administered Current Inpatient Medications Acetaminophen (Acetaminophen 325 Mg Tab) 650 mg PO Q4H PRN PRN Reason: pain/fever Stop: 10/25/21 22:16 Last Admin: 09/26/21 09:12 Dose: 650 mg Al Hydrox/Mg Hydrox/Simethicone (Aluminum/Magnesium Susp 30 Ml Udc) 30 ml PO Q6H PRN PRN Reason: heartburn, indigestion Stop: 10/26/21 10:48 Enoxaparin Sodium (Enoxaparin Inj 40 Mg/0.4 Ml Syr) 40 mg SQ QAM BARTOLO Stop: 10/26/21 10:59 Famotidine (Famotidine 20 Mg Tab) 20 mg PO BID BARTOLO Stop: 10/25/21 22:16 Last Admin: 09/26/21 09:08 Dose: 20 mg Hydromorphone HCl (Hydromorphone Inj 0.5 Mg/0.5 Ml Syr) 0.5 mg IV Q4H PRN PRN Reason: Pain Stop: 10/09/21 22:16 Dextrose/Sodium Chloride (D5w And 1/2nss) 1,000 mls @ 125 mls/hr IV .Q8H BARTOLO Stop: 10/25/21 22:16 Last Admin: 09/26/21 05:50 Dose: 125 mls/hr Pantoprazole Sodium 40 mg/ (Syringe) 10 mls @ 5 mls/min IV BID BARTOLO Stop: 10/26/21 10:59 Miscellaneous (Remove Nicoderm Patch) 1 each N/A DAILY@0859 [facility] Stop: 10/26/21 08:58 Last Admin: 09/26/21 09:07 Dose: 1 each Nicotine (Nicotine 21 Mg/24 Hr Tdsy) 21 mg TD DAILY BARTOLO Stop: 10/25/21 23:19 Last Admin: 09/26/21 09:08 Dose: Not Given Ondansetron HCl (Ondansetron Inj 2 Mg/Ml 2 Ml Vial) 4 mg IV Q4 PRN PRN Reason: Nausea Stop: 10/25/21 22:16 Tamsulosin HCl (Tamsulosin Hcl 0.4 Mg Cap) 0.4 mg PO HS BARTOLO Stop: 10/25/21 22:16 Last Admin: 09/25/21 22:55 Dose: 0.4 mg (1) Nausea & vomiting Vomiting Intractability: intractable Vomiting type: unspecified Qualified Code(s): R11.2 - Nausea with vomiting, unspecified
[2021-09-26] MEDS: PANTOprazole 40 MG in SYRINGE 0 ML IV SCH ×2 (11:47→20:03)
[2021-09-26] MEDS: ENOXAPARIN INJ 40 MG/0.4 ML SYR SQ SCH (11:48)
[2021-09-26] MEDS: TAMSULOSIN HCL 0.4 MG CAP PO SCH (20:03)
[2021-09-27] MEDS: D5W AND 1/2NSS 1,000 ML IV SCH ×3 (04:00→20:09)
[2021-09-27 06:25] LABS: Basophils # (auto) 0.02 K/uL (0-0.2); Basophils % (auto) 0.3 %; Eosinophils # (auto) 0.04 K/uL (0-0.50); Eosinophils % (auto) 0.6 %; Hematocrit (blood only) 35.5 % (40.1-51.0); Immature Granulocytes # (auto) 0.01 K/uL (0.00-0.02); Immature Granulocytes % (auto) 0.2 %; Lymphocytes # (auto) 2.23 K/uL (1.2-3.4); Lymphocytes % (auto) 34.8 %; Mean Corpuscular Hgb Conc 33.8 g/dL (32.0-36.0); Mean Corpuscular Volume 85.7 fL (80.0-100.0); Mean Platelet Volume 9.5 fL (9.4-12.4); Monocytes # (auto) 0.96 K/uL (0.24-0.82); Neutrophils # (auto) 3.15 K/uL (1.4-6.5); Neutrophils % (auto) 49.1 %; Platelet Count 183 K/uL (130-400); RDW Coefficient of Variation 13.2 % (11.5-14.5); RDW Standard Deviation 41.4 fL (36.4-46.3); Red Blood Count 4.14 M/uL (4.63-6.08); White Blood Count 6.41 K/ul (4.8-10.8)
[2021-09-27 06:50] LABS: BUN Creatinine Ratio 18.1 (10-20); Calcium 7.8 mg/dl (8.5-10.1); Creatinine Clr Calc Pharmacy 89.5 ml/min; Est GFR (African American) 118.9 ml/min; Est GFR (Non-African American) 102.6 ml/min; Magnesium 1.9 mg/dl (1.7-2.4); Phosphorus 1.8 mg/dl (2.5-4.9); Potassium 3.4 mmol/L (3.5-5.1)
[2021-09-27 06:51] LABS: Estimated Average Glucose 111 mg/dl; Hemoglobin A1C 5.5 % (4.5-5.6)
[2021-09-27] MEDS ORDERED: POTASSIUM CHLORIDE CRTAB 20 MEQ TABCR PO ONE (07:50)
[2021-09-27] MEDS: ENOXAPARIN INJ 40 MG/0.4 ML SYR SQ SCH (08:28)
[2021-09-27] MEDS: PANTOprazole 40 MG in SYRINGE 0 ML IV SCH ×2 (08:28→20:09)
[2021-09-27] MEDS: NICOTINE 21 MG/24 HR TDSY TD SCH (08:29)
[2021-09-27] MEDS: ACETAMINOPHEN 325 MG TAB PO PRN (08:29)
[2021-09-27] MEDS: POT PHOSPHATE MONOBASIC W/ SOD TAB PO SCH ×4 (11:21→21:59)
[2021-09-27 16:32] LABS: Adenovirus F 40/41 PCR Not Detected (NotDetected); Astrovirus PCR Not Detected (NotDetected); Campylobacter PCR Not Detected (NotDetected); Clostridium diff Toxin A/B PCR Not Detected (NotDetected); Cryptosporidium PCR Not Detected (NotDetected); Cyclospora cayetanensis PCR Not Detected (NotDetected); Entamoeba histolytica PCR Not Detected (NotDetected); Enteroaggregative E.coli(EAEC) Not Detected (NotDetected); Enteropathogenic E.coli (EPEC) Not Detected (NotDetected); Enterotoxigenic E.coli (ETEC) Not Detected (NotDetected); Giardia lamblia PCR Not Detected (NotDetected); Norovirus GI/GII PCR Not Detected (NotDetected); Plesiomonas shigelloides PCR Not Detected (NotDetected); Rotavirus A PCR Not Detected (NotDetected); Salmonella PCR Not Detected (NotDetected); Sapovirus PCR Not Detected (NotDetected); Shiga-like Toxin E.coli (STEC) Not Detected (NotDetected); Shigella/Enteroinvasive E.coli Not Detected (NotDetected); Vibrio cholerae PCR Not Detected (NotDetected); Vibrio species PCR Not Detected (NotDetected); Yersinia enterocolitica PCR Not Detected (NotDetected)
--- NOTE | 2021-09-27 19:24 | Hospitalist Progress Note ---
Date of Service September 27, 2021 Assessment & Plan (1) Gastroenteritis: (2) Acute kidney injury: (3) Dehydration: (4) Nausea & vomiting: (5) Hypokalemia: Plan 51 year old male who presented to the ED 09/25 with N/V/abd pain and diarrhea ongoing for the past week, started on 09/[address] A/P 09/25 1. There are significantly thick-walled loops of small bowel in the left abdomen with mild surrounding inflammation. This is consistent with a nonspecific enteritis. Clinical correlation will be required. 2. There is no bowel obstruction. 3. Mild colonic diverticulosis without CT evidence of acute diverticulitis. 4. Prostatomegaly with evidence of chronic bladder outlet obstruction. N/V/Diarrhea/Abd pain- Likely viral gastroenteritis. CT AP with non specific enteritis as stated above. Stool biofire negative. No blood in vomit or stool. Abd benign. Non toxic. Lipase, LFTs normal. - improving with symptomatic management- continue- advance diet. TRIPP- Resolved, it was prerenal due to poor oral intake and d/t GI loss. Cr back to baseline of 0.7-0.9. Cr 2.95->1.34->0.8. Leucocytosis- likely reactive, resolved. Urine clx pending. Afebrile, non toxic. GERD- continue IV PPI. Change to po tomorrow Acute malnutrition- States lost 19 lb over the past week due to not being able to meet his nutritional needs due to N/V. BMI 19. Appetite finally improved and toleration oral intake now Hypokalemia- mild, repleted, recheck in am Hypophosphatemia- repleted. recheck in am H/o BPH s/p TURP- continue flomax. voiding without issues. DVT ppx- sc lovenox Dispo- Anticipate discharge tomorrow if continues to improve and tolerate diet without issues Admission and Anticipated Discharge Date Admission Date: September 25, 2021 Subjective Feeling much better today. Feels hungry today- appetite finally back. Able to tolerate clear liquid without issues and would like to advance to regular diet. No N/V/abd pain. Had an episode of diarrhea and stool studies were sent. Physical Exam Physical Exam: General: Lying comfortably in bed, not in distress, on room air HEENT: EOMI, WALDO, MMM Chest: Clear breath sounds bilaterally, no wheezes or crackles CVS: Regular rate and rhythm, normal heart sounds, no murmur Abdomen: Soft, non tender, not distended, normal bowel sounds Neuro: Awake, alert, oriented, conversing well, non focal Extremities: No cyanosis, clubbing or edema Results & Data Results & Data ([facility]) Vital Signs (Past 12 Hours) Vital Signs Temp Pulse Resp BP Pulse Ox O2 Del Method 09/27/21 15:08 36.8 C 57 L 18 128/72 99 09/27/21 07:23 37 C 52 L 16 123/70 98 Room Air Laboratory Results Short CBC 09/27/21 Range/Units 05:24 WBC 6.41 (4.8-10.8) K/ul Hgb 12.0 L (14.0-18.0) g/dl Hct 35.5 L (40.1-51.0) % Plt Count 183 (130-400) K/uL BMP 09/27/21 05:24 Sodium 138 Potassium 3.4 L Chloride 104 Carbon Dioxide 30 BUN 15 Creatinine 0.83 D Glucose 93 Calcium 7.8 L Medications Administered Current Inpatient Medications Acetaminophen (Acetaminophen 325 Mg Tab) 650 mg PO Q4H PRN PRN Reason: pain/fever Stop: 10/25/21 22:16 Last Admin: 09/27/21 08:29 Dose: 650 mg Al Hydrox/Mg Hydrox/Simethicone (Aluminum/Magnesium Susp 30 Ml Udc) 30 ml PO Q6H PRN PRN Reason: heartburn, indigestion Stop: 10/26/21 10:48 Last Admin: 09/26/21 19:15 Dose: 30 ml Enoxaparin Sodium (Enoxaparin Inj 40 Mg/0.4 Ml Syr) 40 mg SQ QAM [facility] Stop: 10/26/21 10:59 Last Admin: 09/27/21 08:28 Dose: 40 mg Famotidine (Famotidine 20 Mg Tab) 20 mg PO BID [place] Stop: 10/25/21 22:16 Last Admin: 09/26/21 09:08 Dose: 20 mg Hydromorphone HCl (Hydromorphone Inj 0.5 Mg/0.5 Ml Syr) 0.5 mg IV Q4H PRN PRN Reason: Pain Stop: 10/09/21 22:16 Dextrose/Sodium Chloride (D5w And 1/2nss) 1,000 mls @ 125 mls/hr IV .Q8H [facility] Stop: 10/25/21 22:16 Last Admin: 09/27/21 12:00 Dose: 125 mls/hr Pantoprazole Sodium 40 mg/ (Syringe) 10 mls @ 5 mls/min IV BID [facility] Stop: 10/26/21 10:59 Last Admin: 09/27/21 08:28 Dose: 5 mls/min Miscellaneous (Remove Nicoderm Patch) 1 each N/A DAILY@0859 [facility] Stop: 10/26/21 08:58 Last Admin: 09/27/21 08:24 Dose: Not Given Nicotine (Nicotine 21 Mg/24 Hr Tdsy) 21 mg TD DAILY [facility] Stop: 10/25/21 23:19 Last Admin: 09/27/21 08:29 Dose: Not Given Ondansetron HCl (Ondansetron Inj 2 Mg/Ml 2 Ml Vial) 4 mg IV Q4 PRN PRN Reason: Nausea Stop: 10/25/21 22:16 Potassium Phosphate (Pot Phosphate Monobasic W/ Sod Tab) 2 tab PO QID [facility] Stop: 09/29/21 08:59 Last Admin: 09/27/21 17:18 Dose: 2 tab Tamsulosin HCl (Tamsulosin Hcl 0.4 Mg Cap) 0.4 mg PO HS [facility] Stop: 10/25/21 22:16 Last Admin: 09/26/21 20:03 Dose: 0.4 mg (1) Nausea & vomiting Vomiting Intractability: intractable Vomiting type: unspecified Qualified Code(s): R11.2 - Nausea with vomiting, unspecified
[2021-09-27] MEDS: TAMSULOSIN HCL 0.4 MG CAP PO SCH (22:00)
[2021-09-28] MEDS: D5W AND 1/2NSS 1,000 ML IV SCH (04:06)
[2021-09-28] MEDS: POT PHOSPHATE MONOBASIC W/ SOD TAB PO SCH ×2 (07:35→13:07)
[2021-09-28] MEDS: ENOXAPARIN INJ 40 MG/0.4 ML SYR SQ SCH (07:35)
[2021-09-28] MEDS: NICOTINE 21 MG/24 HR TDSY TD SCH (07:35)
[2021-09-28] MEDS: PANTOprazole 40 MG in SYRINGE 0 ML IV SCH (07:36)
[2021-09-28] MEDS: FAMOTIDINE 20 MG TAB PO SCH (09:13)
[2021-09-28 09:15] LABS: Basophils # (auto) 0.01 K/uL (0-0.2); Basophils % (auto) 0.1 %; Eosinophils # (auto) 0.07 K/uL (0-0.50); Eosinophils % (auto) 0.9 %; Hematocrit (blood only) 35.9 % (40.1-51.0); Hemoglobin 12.3 g/dl (14.0-18.0); Immature Granulocytes # (auto) 0.02 K/uL (0.00-0.02); Immature Granulocytes % (auto) 0.3 %; Lymphocytes # (auto) 2.17 K/uL (1.2-3.4); Mean Corpuscular Hemoglobin 29.2 pg (25.0-34.0); Mean Corpuscular Hgb Conc 34.3 g/dL (32.0-36.0); Mean Corpuscular Volume 85.3 fL (80.0-100.0); Mean Platelet Volume 9.7 fL (9.4-12.4); Monocytes # (auto) 0.83 K/uL (0.24-0.82); Monocytes % (auto) 10.7 %; Neutrophils # (auto) 4.66 K/uL (1.4-6.5); Platelet Count 167 K/uL (130-400); RDW Standard Deviation 40.5 fL (36.4-46.3); Red Blood Count 4.21 M/uL (4.63-6.08); White Blood Count 7.76 K/ul (4.8-10.8)
[2021-09-28 09:29] LABS: Calcium 7.8 mg/dl (8.5-10.1); Magnesium 1.8 mg/dl (1.7-2.4); Phosphorus 2.4 mg/dl (2.5-4.9)
[2021-09-28] MEDS ORDERED: PSYLLIUM or GUAR GUM FIBER POWDER PACKET PO SCH (09:45)
[2021-09-28] MEDS ORDERED: PSYLLIUM or GUAR GUM FIBER POWDER PACKET PO ONE (10:00)
[2021-09-28] MEDS ORDERED: POTASSIUM CHLORIDE CRTAB 20 MEQ TABCR PO STA (13:29)
--- NOTE | 2021-09-28 17:45 | Discharge Summary ---
Date of Service September 28, 2021 Admission HPI Per Admitting Provider This 51-year-old male with past medical history significant for prediabetes, BPH, status post TURP, history of osteoarthritis of both hips, adhesive capsulitis of shoulder, history of hepatitis B, presents with ongoing nausea, vomiting for the last 3 days and abdominal pain, not able to eat anything. He was in the ER yesterday and did okay and got discharged. Comes back again as his symptoms are not getting better. He also had fever and chills, but today he is afebrile. Has a somewhat mild headache. Denies any earache, no runny nose. Has some sore throat, no cough, no chest pain, no shortness of breath. His abdominal pain is moderate in nature. He is somewhat constipated because he is not eating much and also not making much urine because he thinks he is dehydrated. No swelling in the legs. Currently, hemodynamically stable. Admission Exam Per Admitting Provider GENERAL: The patient is of moderate build, not in acute distress. VITAL SIGNS: Temperature 36.9, pulse 60, respiratory rate 18, blood pressure 147/81, oxygen 96% on room air. HEENT: Pupils equal, round and reactive to light. Oral mucosa moist. NECK: No JVD, no neck masses. CARDIOVASCULAR: S1 and S2 heard. Regular rate and rhythm. No murmur, no gallop. RESPIRATORY SYSTEM: Normal AP diameter. No accessory muscle use. No wheezing, no crackles. ABDOMEN: Soft, bowel sounds present. Mild diffuse discomfort. No guarding, no rigidity, no distention. CENTRAL NERVOUS SYSTEM: Cranial nerves II through XII are grossly intact, nonfocal. EXTREMITIES: No edema, no erythema. Principal Diagnosis Viral gastroenteritis Discharge Exam General: Lying comfortably in bed, not in distress, on room air HEENT: EOMI, WALDO, MMM Chest: Clear breath sounds bilaterally, no wheezes or crackles CVS: Regular rate and rhythm, normal heart sounds, no murmur Abdomen: Soft, non tender, not distended, normal bowel sounds Neuro: Awake, alert, oriented, conversing well, non focal Extremities: No cyanosis, clubbing or edema Discharge Data Allergies Allergy/AdvReac Type Severity Reaction Status Date / Time No Known Allergies Allergy Verified 09/25/21 15:59 Consultations 09/25/21 20:38 ED Decision to Admit Stat Ordered Studies 09/25/21 17:26 CT abd pelvis wo con Stat Laboratory Results WBC 7.76 K/ul (4.8-10.8) 09/28/21 08:14 RBC 4.21 M/uL (4.63-6.08) L 09/28/21 08:14 Hgb 12.3 g/dl (14.0-18.0) L 09/28/21 08:14 Hct 35.9 % (40.1-51.0) L 09/28/21 08:14 MCV 85.3 fL (80.0-100.0) 09/28/21 08:14 MCH 29.2 pg (25.0-34.0) 09/28/21 08:14 MCHC 34.3 g/dL (32.0-36.0) 09/28/21 08:14 RDW Std Deviation 40.5 fL (36.4-46.3) 09/28/21 08:14 RDW Coeff of Yesy 13.0 % (11.5-14.5) 09/28/21 08:14 Plt Count 167 K/uL (130-400) 09/28/21 08:14 MPV 9.7 fL (9.4-12.4) 09/28/21 08:14 Immature Gran % (Auto) 0.3 % 09/28/21 08:14 Neut % (Auto) 60.0 % 09/28/21 08:14 Lymph % (Auto) 28.0 % 09/28/21 08:14 [place] % (Auto) 10.7 % 09/28/21 08:14 Eos % (Auto) 0.9 % 09/28/21 08:14 Baso % (Auto) 0.1 % 09/28/21 08:14 Neut # (Auto) 4.66 K/uL (1.4-6.5) 09/28/21 08:14 Lymph # (Auto) 2.17 K/uL (1.2-3.4) 09/28/21 08:14 [place] # (Auto) 0.83 K/uL (0.24-0.82) H 09/28/21 08:14 Eos # (Auto) 0.07 K/uL (0-0.50) 09/28/21 08:14 Baso # (Auto) 0.01 K/uL (0-0.2) 09/28/21 08:14 Immature Gran # (Auto) 0.02 K/uL (0.00-0.02) 09/28/21 08:14 Sodium 139 mmol/L (136-145) 09/28/21 08:14 Potassium 3.0 mmol/L (3.5-5.1) L 09/28/21 08:14 Chloride 102 mmol/L (98-107) 09/28/21 08:14 Carbon Dioxide 31 mmol/L (21-32) 09/28/21 08:14 Anion Gap 6 (3-11) 09/28/21 08:14 BUN 12 mg/dl (6-23) 09/28/21 08:14 Creatinine 0.75 mg/dl (0.6-1.4) 09/28/21 08:14 Est Cr Clr Drug Dosing 99.0 ml/min 09/28/21 08:14 Est GFR ( Amer) 124.0 ml/min 09/28/21 08:14 Est GFR (Non-Af Amer) 107.0 ml/min 09/28/21 08:14 BUN/Creatinine Ratio 16.0 (10-20) 09/28/21 08:14 Glucose 93 mg/dl (70-99(Fasting)) 09/28/21 08:14 Estimat Average Glucose 111 mg/dl 09/27/21 05:24 Hemoglobin A1c 5.5 % (4.5-5.6) 09/27/21 05:24 Calcium 7.8 mg/dl (8.5-10.1) L 09/28/21 08:14 Phosphorus 2.4 mg/dl (2.5-4.9) L 09/28/21 08:14 Magnesium 1.8 mg/dl (1.7-2.4) 09/28/21 08:14 Total Bilirubin 0.8 mg/dl (0.2-1.0) 09/25/21 15:50 AST 16 U/L (13-39) 09/25/21 15:50 ALT 22 U/L (7-52) 09/25/21 15:50 Alkaline Phosphatase 129 U/L (34-104) H 09/25/21 15:50 Total Protein 8.8 gm/dl (6.0-8.3) H 09/25/21 15:50 Albumin 5.2 gm/dl (3.4-5.0) H 09/25/21 15:50 Globulin 3.6 gm/dl (2.5-4.0) 09/25/21 15:50 Albumin/Globulin Ratio 1.4 (0.9-2) 09/25/21 15:50 Lipase 8 U/L (11-82) L 09/25/21 15:50 Urine Color Dark Yellow 09/25/21 23:08 Urine Appearance Clear (Clear) 09/25/21 23:08 Urine pH 5.5 (4.5-7.5) 09/25/21 23:08 Ur Specific [place] 1.024 (1.000-1.030) 09/25/21 23:08 Urine Protein 2+ (Negative) H 09/25/21 23:08 Urine Glucose (UA) Negative (Negative) 09/25/21 23:08 Urine Ketones Trace (Negative) H 09/25/21 23:08 Urine Blood Negative (Negative) 09/25/21 23:08 Urine Nitrite Negative (Negative) 09/25/21 23:08 Urine Bilirubin Negative (Negative) 09/25/21 23:08 Urine Urobilinogen Negative (Negative) 09/25/21 23:08 Ur Leukocyte Esterase Trace (Negative) H 09/25/21 23:08 Urine WBC (Auto) 10-30 /hpf (0-5) H 09/25/21 23:08 Urine RBC (Auto) 5-10 /hpf (0-4) H 09/25/21 23:08 U Hyaline Cast (Auto) >30 /lpf (0-5) H 09/25/21 23:08 U Epithel Cells (Auto) >30 /lpf (0-5) H 09/25/21 23:08 Urine Bacteria (Auto) Negative (Negative) 09/25/21 23:08 Stl C. cayetanensis PCR Not Detected (NotDetected) 09/27/21 15:00 Stool Rotavirus A PCR Not Detected (NotDetected) 09/27/21 15:00 Stl Adenov F 40/41 PCR Not Detected (NotDetected) 09/27/21 15:00 Stool Astrovirus (PCR) Not Detected (NotDetected) 09/27/21 15:00 Stool Campylobacter PCR Not Detected (NotDetected) 09/27/21 15:00 Stl C. diff Tox A/B PCR Not Detected (NotDetected) 09/27/21 15:00 Stool Cryptosporidium PCR Not Detected (NotDetected) 09/27/21 15:00 Stl E.coli Shiga Tox PCR Not Detected (NotDetected) 09/27/21 15:00 Stl Enterotoxigenic E PCR Not Detected (NotDetected) 09/27/21 15:00 Stool EPEC (PCR) Not Detected (NotDetected) 09/27/21 15:00 Stool EAEC (PCR) Not Detected (NotDetected) 09/27/21 15:00 Stl E. histolytica PCR Not Detected (NotDetected) 09/27/21 15:00 Stool Giardia Lamblia PCR Not Detected (NotDetected) 09/27/21 15:00 Stool Salmonella PCR Not Detected (NotDetected) 09/27/21 15:00 Stool Sapovirus (PCR) Not Detected (NotDetected) 09/27/21 15:00 Stl P. shigelloides PCR Not Detected (NotDetected) 09/27/21 15:00 Stl Shigella/EIEC PCR Not Detected (NotDetected) 09/27/21 15:00 St Y.enterocolitica PCR Not Detected (NotDetected) 09/27/21 15:00 Stool Vibrio (PCR) Not Detected (NotDetected) 09/27/21 15:00 Stl Vibrio cholerae PCR Not Detected (NotDetected) 09/27/21 15:00 Stl Norovirus GI/GII PCR Not Detected (NotDetected) 09/27/21 15:00 SARS-CoV-2, RNA, NAAT NEGATIVE (NEGATIVE) 09/25/21 18:51 Impressions Abdomen/Pelvis CT 09/25/21 17:26 CT SCAN OF THE ABDOMEN AND PELVIS WITHOUT IV CONTRAST CLINICAL HISTORY: Generalized abdominal pain. Vomiting. Acute renal insuf ficiency. COMPARISON STUDY: Abdominal CT dated 12/12/2020. TECHNIQUE: CT scan of the abdomen and pelvis is performed from the lung bases to the proximal femora. Images are reviewed in the axial, sagittal, and coronal planes. IV contrast was not administered for this examination due to poor renal function. Note that the examination is suboptimal without oral and IV contrast. A dose lowering technique was utilized adhering to the principles of ALARA. CT DOSE: 257.74 mGy.cm FINDINGS: Lung bases: The heart is normal in size and without pericardial effusion. The lung bases are clear noting dependent atelectasis. A small fat-containing Bochdalek hernia is noted on the left. Liver: The unenhanced liver is normal in size, contour, and attenuation. There is no intrahepatic biliary ductal dilatation. Gallbladder: Unremarkable. Spleen: Normal in size and attenuation. Pancreas: Unremarkable. Adrenal glands: Unremarkable. Kidneys: The unenhanced kidneys are normal in size and without hydronephrosis. There are no renal calculi identified. There is no evidence of contour deforming renal mass lesion. Abdominal vasculature: The abdominal aorta is normal in course and caliber noting moderate atherosclerotic calcification. Bowel: There is mild colonic diverticulosis without CT evidence of acute diverticulitis. There are significantly thick-walled loops of proximal small bowel in the left abdomen with mild surrounding infiltration. No bowel obstruction is seen. No pneumatosis intestinalis or portal venous gas is identified. The appendix is prominent but otherwise normal as visualized. Peritoneum: There is no intraperitoneal free air or abdominal ascites. Lymphadenopathy: None. Pelvic viscera: The prostate gland is mildly enlarged and heterogeneous. The bladder wall is thickened and trabeculated indicating chronic outlet obstruction. Skeletal structures: No lytic or blastic lesions are seen. Advanced arthritic change is noted in the right hip. IMPRESSION: 1. There are significantly thick-walled loops of small bowel in the left abdomen with mild surrounding inflammation. This is consistent with a nonspecific enteritis. Clinical correlation will be required. 2. There is no bowel obstruction. 3. Mild colonic diverticulosis without CT evidence of acute diverticulitis. 4. Prostatomegaly with evidence of chronic bladder outlet obstruction. 5. Additional findings as above. ACT 112: Negative or not required by law. Electronically signed by: Everardo Ngo M.D. 09/25/2021 6:37 PM Hospital Course (1) Gastroenteritis: (2) Acute kidney injury: (3) Dehydration: (4) Nausea & vomiting: (5) Hypokalemia: Plan 51 year old male who presented to the ED 09/25 with N/V/abd pain and diarrhea ongoing for the past week, started on 7/[address] A/P 09/25 1. There are significantly thick-walled loops of small bowel in the left abdomen with mild surrounding inflammation. This is consistent with a nonspecific enteritis. Clinical correlation will be required. 2. There is no bowel obstruction. 3. Mild colonic diverticulosis without CT evidence of acute diverticulitis. 4. Prostatomegaly with evidence of chronic bladder outlet obstruction. N/V/Diarrhea/Abd pain- Likely viral gastroenteritis. CT AP with non specific enteritis as stated above. Stool biofire negative. No blood in vomit or stool. Abd benign. Non toxic. Lipase, LFTs normal. - significantly improved with symptomatic management- now tolerating normal diet without any N/V/abd pain- diarrhea improving. Recommended fibers to bulk up the stool, if still problematic- imodium prn - F/u with GI for colonoscopy as he is due. TRIPP- Resolved, it was prerenal due to poor oral intake and d/t GI loss. Cr back to baseline of 0.7-0.9. Cr 2.95->1.34->0.8->0.7. Leucocytosis- likely reactive, resolved. Urine clx negative, stool studies negative. Afebrile, non toxic. GERD- improved with PPI. Continue protonix at discharge. Acute malnutrition- States lost 19 lb over the past week due to not being able to meet his nutritional needs due to N/V. BMI 19. Appetite finally improved and tolerating regular food without issues Hypokalemia- repleted prior to discharge. Hypophosphatemia- repleted H/o BPH s/p TURP- continue flomax. voiding without issues. Feeling significantly better. Comfortable and stable for discharge home. Total Time Total Time Spent Total Time Spent (In Minutes): 40 Discharge Plan Discharge Items Patient Disposition: Home - Self-Care Reason For Visit: N/V Discharge Diagnosis: Viral gastroenteritis Activity: Resume your previous activity Non-emergency contact: Primary Care Provider Call non-emergency contact if: you have any medication questions, your symptoms worsen, your pain is not controlled and you have a fever Follow-up/Referrals: Levi Flores MD [Primary Care Provider] - (Date & Time 10/01/2021 1:40 PM Provider Levi Flores MD Department Family Medicine [facility] ) Diet: Regular Addtl Attending Provider Instructions: You can take fiber supplement as needed to bulk up the stool. If that doesn't help with diarrhea, you can take imodium as needed. Continue protonix daily for the heart burn. Follow up with the family doctor with referral to GI for colonoscopy Stop smoking. Pending Studies at Discharge: No Stand-Alone Forms: My [facility], Smoking Cessation Medications and DC Order Prescriptions: New pantoprazole [Protonix] 40 mg tablet,delayed release (DR/EC) 40 mg PO DAILY Qty: 30 0RF Continued tamsulosin 0.4 mg Capsule 0.4 mg PO HS Qty: 30 0RF ondansetron 4 mg tablet,disintegrating 4 mg PO Q6H PRN (Reason: nausea and vomiting) Qty: 14 0RF Discontinued famotidine 20 mg tablet 20 mg PO BID Qty: 20 0RF Discharge Orders: Discharge Order (Routine); Ordered 09/28/21 Ordered By: Damon Bazan/Other Patient Handouts: ED GERD (Adult) Admission Data Admit Date/Time: 09/25/21 20:29 Attending Provider: Damon Cheema Admit Provider: Wai Oh Primary Care Provider: Levi Flores Other Providers: Wai Oh Other Interventions: Discharge Summary Assessment (RN) Last Done: 09/28/21 13:55
== END 2021-09-28 14:19 | disposition home or self-care (01) | DRG 392 ==
LOC: ED 15:29 → 3W 20:29

== ENCOUNTER 2023-08-10 19:07 | Inpatient (IN) ==
[2023-08-10] MEDS: SODIUM CHLORIDE 0.9% 1,000 ML IV STA (19:28)
[2023-08-10] MEDS: MoRPHine SULFATE 4 MG/ML 1 ML CARP\\VIAL IV PRN (19:29)
[2023-08-10] MEDS: ONDANSETRON INJ 2 MG/ML 2 ML VIAL IV STA (19:29)
--- NOTE | 2023-08-10 19:39 | Emergency Department Note ---
Impression & Plan Small bowel obstruction, Abdominal pain, Vomiting, Ileitis ED Provider Note NAME: HADLEY MCGUIRE AGE: 52 SEX: M : 1970 ARRIVES VIA: Walk-In INFORMANT: Patient, ED PROVIDER(S): Hans Lee DO CHIEF COMPLAINT: Abdominal pain HPI: The patient is a 52-year-old male who presented to the emergency department for an evaluation of abdominal pain. The patient states for approximately 1 week he has had upper abdominal pain that he describes as a burning sensation. He also describes it as a tightness. He denies having any chest pain or difficulty breathing. He thought it could be from his GERD so he started taking omeprazole. The patient started having nausea and vomiting. He denies having any black or tarry stool. He denies having any hematemesis. The patient has not been seen by his family doctor for the symptoms became the emergency department for further evaluation. ROS: See above HPI for pertinent positives & negatives. A total of 10 systems reviewed and were otherwise negative. PAST MEDICAL HISTORY: See Below PAST SURGICAL HISTORY: See Below FAMILY HISTORY: See Below SOCIAL HISTORY: See Below HOME MEDICATIONS: See Below ALLERGIES: See Below VITALS: See Below PHYSICAL EXAMINATION: GENERAL: The patient is awake and alert. The patient is anxious and uncomfortable. EYES: The conjunctivae are clear. The pupils are round and reactive. EARS, NOSE, MOUTH AND THROAT: The nose is without any evidence of any deformity. NECK: The neck is nontender and supple. RESPIRATORY: Normal respiratory effort is noted there is no evidence of wheezing rhonchi or rales CARDIOVASCULAR: Regular rate and rhythm noted there no murmurs rubs or gallops normal S1 normal S2. GASTROINTESTINAL: The abdomen was distended. There is diffuse tenderness to palpation and guarding in the epigastric region. MUSCULOSKELETAL/EXTREMITIES: There is no evidence of gross deformity full range of motion is noted in the hips and shoulders. SKIN: There is no obvious evidence of any rash. There are no petechiae, pallor or cyanosis noted. NEUROLOGIC: Patient is awake alert and oriented x3 strength is symmetric patellar reflexes are 2+ bilaterally MEDICAL DECISION MAKING: The patient is a 52-year-old male he does have a past medical history of hernia repair as well as prostate surgery who presented to the emergency department for an evaluation of abdominal pain nausea and vomiting. The patient's history and physical exam did reveal abdominal distention and significant pain. He was treated with IV fluids and IV pain medication in the emergency department. On reevaluation he was feeling somewhat improved. I discussed the patient's laboratory and radiographic studies with him. CT of the abdomen and pelvis was obtained and appears to be consistent with a distal small bowel obstruction. For this reason I discussed his condition with the on-call [facility] hospitalist as well as the on-call general surgical group. They have agreed to evaluate the patient for further management disposition. The patient's vomiting was significantly improved. I do not feel he needs an NG tube at this time but this might change. Triage Nursing notes reviewed. Prior medical records reviewed Vital Signs: reviewed and remarkable for no significant abnormalities Differential diagnosis: Etiologies such as appendicitis, diverticulitis, obstruction, inflammatory bowel disease, renal colic, PUD, biliary pathology, pancreatitis, mesenteric ischemia, aortic pathology, infections, genitourinary, UTI, perforated viscus, as well as others were entertained. ER treatment provided: See below Diagnostics interpreted by me: ECG: EKG was obtained in the emergency department. My interpretation is sinus bradycardia at 46 bpm. There is no ectopy. There is no acute ST segment abnormalities noted. This was compared to a tracing from September 23, 2021. No changes were noted. Cardiac Monitoring: An order was placed for continuous cardiac monitoring. The monitor shows a rate of 46 bpm with sinus rhythm. Laboratory studies: As stated above and show below. Imaging studies: See below. Radiographic imaging was reviewed by myself Consultation(s): I discussed this case with Jose who is on-call for general surgery. I discussed this case with Dr[facility]. [facility] Med/Surg History Problem List (Updated 08/10/23 @ 21:47 by Hans Lee DO) Ileitis (Acute) Vomiting (Acute) Small bowel obstruction (Acute) Encounter for pre-operative examination Abdominal pain (Acute) Acute urinary retention (Acute) Hypokalemia Bladder stone Prostatic hypertrophy Medical History Hx of hepatitis Hepatitis B (1984) Arthritis Marie catheter in place Kidney stones BPH (benign prostatic hyperplasia) GERD (gastroesophageal reflux disease) Prediabetes Post traumatic stress disorder Anxiety Restless leg syndrome History of asthma Surgical History History of open reduction and internal fixation (ORIF) procedure RT WRIST (HARDWARE REMOVED) History of cystoscopy History of tooth extraction History of hernia surgery Family History Father Diabetes Mother Breast cancer Other No family history of adverse response to anesthesia Social History Smoking Status: Current every day smoker Tobacco Type: Cigarettes Cigarettes Per Day: 1 pack; Second Hand Exposure: No; Do You Dip or Chew Tobacco: No; Hx Alcohol Use: No Hx Substance Use: Yes Last Used Substance: Days (ago) Last Used Substance Other:: 09/22/21 Preferred Language: Jordanian Communication Ability: Effective Program Professional Required: No Beliefs That Will Affect Care: None Current Living Situation: Alone Current Living Situation Comment: Lives alone in apartment Feels Safe at Home: Yes Assistive Devices: None Allergies Allergies Allergy/AdvReac Type Severity Reaction Status Date / Time No Known Allergies Allergy Verified 09/25/21 15:59 Home Meds Home Medications Medication Instructions Recorded Confirmed No Known Home Medications 08/10/23 08/10/23 Results & Data (ED) Vital Signs Vital Signs - 24 hr 08/10/23 19:17 08/10/23 19:27 08/10/23 19:36 Temperature 36.7 C Temperature Source Temporal Artery Scan Pulse Rate 50 L 48 L Pulse Rate [Apical] 55 L Pulse Rhythm Respiratory Rate 19 18 Respiratory Effort / Characteristics Non-Labored Spontaneous Non-Labored Respiratory Depth Normal Normal Respiratory Pattern Regular Blood Pressure 143/84 H Blood Pressure [Left Arm] 137/84 Blood Pressure Mean 103 Blood Pressure Mean [Left Arm] 101 Pulse Oximetry 96 99 Oxygen Delivery Method Room Air Room Air Sepsis Recent Fever Within 48 Hours No Sepsis New/Unexplained Change in Mental Status N/A Sepsis Action Taken by Nursing No Action Required 08/10/23 19:36 08/10/23 21:08 Temperature Temperature Source Pulse Rate 55 L Pulse Rate [Apical] 46 L Pulse Rhythm Regular Respiratory Rate 18 18 Respiratory Effort / Characteristics Non-Labored Respiratory Depth Normal Respiratory Pattern Regular Blood Pressure Blood Pressure [Left Arm] 121/80 Blood Pressure Mean Blood Pressure Mean [Left Arm] 93 Pulse Oximetry 99 97 Oxygen Delivery Method Room Air Room Air Sepsis Recent Fever Within 48 Hours Sepsis New/Unexplained Change in Mental Status Sepsis Action Taken by Alf Medications Current Medication List: was personally reviewed by me Laboratory Data Attestation: I reviewed the patient's lab results. 08/10/23 19:26 08/10/23 19:26 Lab Results 08/10/23 08/10/23 Range/Units 19:26 19:34 WBC 8.29 (4.8-10.8) K/ul RBC 4.66 L (4.70-6.10) M/uL Hgb 13.8 L (14.0-18.0) g/dl POC Hgb 13.9 L (14.0-18.0) g/dl Hct 41.4 L (42.0-52.0) % POC Hct 41 L (42-52) % MCV 88.8 (80.0-100.0) fL MCH 29.6 (25.0-34.0) pg MCHC 33.3 (32.0-36.0) g/dL RDW Std Deviation 41.6 (36.4-46.3) fL RDW Coeff of Yesy 12.7 (11.5-14.5) % Plt Count 218 (130-400) K/uL MPV 9.4 (9.4-12.4) fL Immature Gran % (Auto) 0.2 % Neut % (Auto) 72.8 % Lymph % (Auto) 17.4 % [place] % (Auto) 8.1 % Eos % (Auto) 1.1 % Baso % (Auto) 0.4 % Neut # (Auto) 6.04 (1.40-6.50) K/uL Lymph # (Auto) 1.44 (1.20-3.40) K/uL [place] # (Auto) 0.67 H (0.11-0.59) K/uL Eos # (Auto) 0.09 (0.00-0.50) K/uL Baso # (Auto) 0.03 (0.00-0.20) K/uL Immature Gran # (Auto) 0.02 (0.01-0.20) K/uL POC Sodium 139 (135-144) mmol/L Sodium 140 (136-145) mmol/L POC Potassium 3.8 (3.3-5.0) mmol/L Potassium 3.7 (3.5-5.1) mmol/L POC Chloride 102 (101-112) mmol/L Chloride 103 (98-107) mmol/L Carbon Dioxide 29 (21-32) mmol/L POC Total CO2 26 (24-31) mmol/L Anion Gap 8 (3-11) POC Anion Gap 16.0 (16-25) mmol/L POC BUN 18 (7-18) mg/dl BUN 19 (6-23) mg/dl Creatinine 1.09 (0.6-1.4) mg/dl POC Creatinine 1.0 (0.6-1.3) mg/dl Est Cr Clr Drug Dosing 73.6 ml/min Est GFR ( Amer) 90.6 ml/min Est GFR (Non-Af Amer) 78.2 ml/min BUN/Creatinine Ratio 17.4 (10-20) Glucose 104 H (70-99(Fasting)) mg/dl POC Glucose (other) 107 H (70-99) mg/dl Calcium 8.8 (8.6-10.3) mg/dl POC Ioniz Calcium [place] 1.07 L (1.12-1.32) mmol/l Total Bilirubin 0.5 (0.2-1.0) mg/dl AST 17 (13-39) U/L ALT 16 (7-52) U/L Alkaline Phosphatase 94 (34-104) U/L Troponin I High Sens 3.5 (0-20) pg/ml Total Protein 6.9 (6.0-8.3) gm/dl Albumin 4.3 (3.4-5.0) gm/dl Globulin 2.6 (2.5-4.0) gm/dl Albumin/Globulin Ratio 1.7 (0.9-2) Lipase 4 L (11-82) U/L Administered Medications Sodium Chloride (Nss) 1,000 mls @ 999 mls/hr IV .Q1H1M ONE Stop: 08/10/23 22:37 Last Admin: 08/10/23 21:42 Dose: 999 mls/hr Documented By: AYANNA Morphine Sulfate (Morphine Sulfate 4 Mg/Ml 1 Ml Carp\Vial) 4 mg IV Q15M PRN PRN Reason: Pain Stop: 08/24/23 19:20 Last Admin: 08/10/23 19:29 Dose: 4 mg Documented By: AVINASH Discontinued Medications Sodium Chloride (Nss) 1,000 mls @ 999 mls/hr IV .Q1H1M STA Stop: 08/10/23 20:21 Last Infusion: 08/10/23 21:03 Dose: Infused Documented By: Admin: 08/10/23 19:28 Dose: 999 mls/hr Documented By: AVINASH Ioversol (Optiray 320 100ml) 93 ml IV ONCE ONE Stop: 08/10/23 19:41 Last Admin: 08/10/23 19:40 Dose: 93 ml Documented By: MARLYS Ondansetron HCl (Ondansetron Inj 2 Mg/Ml 2 Ml Vial) 4 mg IV NOW STA Stop: 08/10/23 19:22 Last Admin: 08/10/23 19:29 Dose: 4 mg Documented By: AVINASH Imaging Data Attestation: I personally reviewed and interpreted this imaging study as follows: My Impression: CT of the abdomen and pelvis was obtained in the emergency department. My interpretation is dilated loops of small bowel, no free air, final report below. 1 view chest x-ray was obtained in the emergency department. My interpretation is dilated loops of bowel under the left diaphragm, no free air, final report pending. Radiologist's Impression: Abdomen/Pelvis CT 08/10/23 19:21 Exam(s): CT ABDOMEN + PELVIS With Contrast IV Amt: 93ml EXAM: CT Abdomen and Pelvis With Intravenous Contrast CLINICAL HISTORY: Reason for exam: vomiting. TECHNIQUE: Axial computed tomography images of the abdomen and pelvis with intravenous contrast. CTDI is 8.64 mGy and DLP is 434.73 mGy-cm. Automated exposure control was utilized for the study. A dose lowering technique was utilized adhering to the principles of ALARA. CONTRAST: Patient received 93ml of IV contrast COMPARISON: No relevant prior studies available. FINDINGS: Lung bases: Unremarkable. No mass. No consolidation. ABDOMEN: Liver: Subcentimeter hepatic cysts are seen. Gallbladder and bile ducts: Unremarkable. No calcified stones. No ductal dilation. Pancreas: Unremarkable. No mass. No ductal dilation. Spleen: Unremarkable. No splenomegaly. Adrenals: Unremarkable. No mass. Kidneys and ureters: Unremarkable. No solid mass. No hydronephrosis. Stomach and bowel: Dilated small bowel loops seen in the abdomen and pelvis, measuring up to 4 cm in diameter. There is a 20 cm long segment of distal small bowel demonstrating wall thickening with more proximal small bowel feces sign. PELVIS: Appendix: No findings to suggest acute appendicitis. Bladder: Unremarkable. No mass. Reproductive: Unremarkable as visualized. ABDOMEN and PELVIS: Intraperitoneal space: Unremarkable. No free air. No significant fluid collection. Bones/joints: No acute fracture. No dislocation. Soft tissues: Unremarkable. Vasculature: Unremarkable. No abdominal aortic aneurysm. Lymph nodes: Unremarkable. No enlarged lymph nodes. IMPRESSION: Distal partial small bowel obstruction with transition point in a segment of distal ileitis Electronically signed by: Cliff Martinez MD 08/10/23 21:34 PM Discharge Plan Visit Data Chief Complaint: Vomiting Stated Complaint: VOMIT ED Provider: Hans Lee Discharge Problem: Small bowel obstruction, Abdominal pain, Vomiting, Ileitis Patient Disposition: Being Evaluated by Hospitalist Forms Stand Alone Forms: [facility], [facility] Prescriptions Prescriptions: No Action No Known Home Medications Referrals Referrals: Levi Flores MD [Hospitalist] - Discharge Problem: Abdominal pain Qualifiers: Abdominal location: generalized Qualified Code(s): R10.84 - Generalized abdominal pain Vomiting Qualifiers: Vomiting type: unspecified Nausea presence: with nausea Qualified Code(s): R 11.2 - Nausea with vomiting, unspecified
[2023-08-10] MEDS: OPTIRAY 320 100ml IV ONE (19:40)
[2023-08-10 19:50] LABS: iSTAT Hemoglobin 13.9 g/dl (14.0-18.0); iSTAT Ionized Calcium 1.07 mmol/l (1.12-1.32); iSTAT Potassium 3.8 mmol/L (3.3-5.0)
[2023-08-10 20:12] LABS: Albumin Globulin Ratio 1.7 (0.9-2); Albumin Level 4.3 gm/dl (3.4-5.0); BUN Creatinine Ratio 17.4 (10-20); Bilirubin,Total 0.5 mg/dl (0.2-1.0); Calcium 8.8 mg/dl (8.6-10.3); Creatinine Clr Calc Pharmacy 73.6 ml/min; Est GFR (African American) 90.6 ml/min; Est GFR (Non-African American) 78.2 ml/min; Globulin 2.6 gm/dl (2.5-4.0); Potassium 3.7 mmol/L (3.5-5.1); Total Protein 6.9 gm/dl (6.0-8.3)
[2023-08-10 20:14] LABS: Basophils # (auto) 0.03 K/uL (0.00-0.20); Basophils % (auto) 0.4 %; Eosinophils # (auto) 0.09 K/uL (0.00-0.50); Eosinophils % (auto) 1.1 %; Hematocrit (blood only) 41.4 % (42.0-52.0); Hemoglobin 13.8 g/dl (14.0-18.0); Immature Granulocytes # (auto) 0.02 K/uL (0.01-0.20); Immature Granulocytes % (auto) 0.2 %; Lymphocytes # (auto) 1.44 K/uL (1.20-3.40); Lymphocytes % (auto) 17.4 %; Mean Corpuscular Hemoglobin 29.6 pg (25.0-34.0); Mean Corpuscular Hgb Conc 33.3 g/dL (32.0-36.0); Mean Corpuscular Volume 88.8 fL (80.0-100.0); Mean Platelet Volume 9.4 fL (9.4-12.4); Monocytes # (auto) 0.67 K/uL (0.11-0.59); Monocytes % (auto) 8.1 %; Neutrophils # (auto) 6.04 K/uL (1.40-6.50); Neutrophils % (auto) 72.8 %; Platelet Count 218 K/uL (130-400); RDW Coefficient of Variation 12.7 % (11.5-14.5); RDW Standard Deviation 41.6 fL (36.4-46.3); Red Blood Count 4.66 M/uL (4.70-6.10); White Blood Count 8.29 K/ul (4.8-10.8)
[2023-08-10 20:18] LABS: Troponin I High Sensitivity 3.5 pg/ml (0-20)
--- NOTE | 2023-08-10 21:35 | CT Scan Report ---
Exam(s): CT ABDOMEN + PELVIS With Contrast IV Amt: 93ml EXAM: CT Abdomen and Pelvis With Intravenous Contrast CLINICAL HISTORY: Reason for exam: vomiting. TECHNIQUE: Axial computed tomography images of the abdomen and pelvis with intravenous contrast. CTDI is 8.64 mGy and DLP is 434.73 mGy-cm. Automated exposure control was utilized for the study. A dose lowering technique was utilized adhering to the principles of ALARA. CONTRAST: Patient received 93ml of IV contrast COMPARISON: No relevant prior studies available. FINDINGS: Lung bases: Unremarkable. No mass. No consolidation. ABDOMEN: Liver: Subcentimeter hepatic cysts are seen. Gallbladder and bile ducts: Unremarkable. No calcified stones. No ductal dilation. Pancreas: Unremarkable. No mass. No ductal dilation. Spleen: Unremarkable. No splenomegaly. Adrenals: Unremarkable. No mass. Kidneys and ureters: Unremarkable. No solid mass. No hydronephrosis. Stomach and bowel: Dilated small bowel loops seen in the abdomen and pelvis, measuring up to 4 cm in diameter. There is a 20 cm long segment of distal small bowel demonstrating wall thickening with more proximal small bowel feces sign. PELVIS: Appendix: No findings to suggest acute appendicitis. Bladder: Unremarkable. No mass. Reproductive: Unremarkable as visualized. ABDOMEN and PELVIS: Intraperitoneal space: Unremarkable. No free air. No significant fluid collection. Bones/joints: No acute fracture. No dislocation. Soft tissues: Unremarkable. Vasculature: Unremarkable. No abdominal aortic aneurysm. Lymph nodes: Unremarkable. No enlarged lymph nodes. IMPRESSION: Distal partial small bowel obstruction with transition point in a segment of distal ileitis Electronically signed by: Cliff Martinez MD 08/10/23 21:34 PM
[2023-08-10] MEDS: SODIUM CHLORIDE 0.9% 1,000 ML IV ONE (21:42)
--- NOTE | 2023-08-10 21:55 | Surgery Consultation ---
Date of Consultation August 10, 2023 Assessment & Plan (1) Small bowel obstruction: I discussed with the treating emergency room physician and the patient is being admitted on the hospital service. From surgical perspective we recommend the following: Implement n.p.o. status Provide IV fluid for hydration Follow serial labs I did discuss the possibility of placing an NG tube with the patient and he wishes to avoid this modality at this time. Is been approximate 4 hours since the patient has had any emesis. I therefore feel we can hold on placing NG tube at this time but I did discuss with the patient if he has any clinical deterioration and his abdominal exam or if he has any further emesis placing an NG tube may be required and he expresses understanding I discussed with the patient the possible causes of his partial small bowel obstruction. Usually small bowel obstructions are caused by hernias but he has not had any intra-abdominal surgeries other than a open right inguinal herniorrhaphy. On patient's CT scan it does appear as though he has a segment of ileum that appears inflamed so this could potentially be contributing to this problem. At the present time the patient is normotensive without tachycardia or fever. He also does not exhibit leukocytosis or acute kidney injury and therefore feel conservative management is warranted at this time Additional recommendations be forthcoming based on his clinical course as it unfolds Would recommend utilizing only SCDs for DVT prevention, avoiding chemical means until it is ascertained whether or not the patient will require any procedural intervention History of Present Illness Reason for Consultation: Partial small bowel obstruction History of Present Illness This is a 52-year-old male who presented the emergency department secondary to not feeling well for approximately 1 week. Patient notes approximate 1 week ago he had a generalized stomach upset with some intermittent diarrhea. He denies any melena. Patient noted that earlier today he had few episodes of nausea and vomiting, denying hematemesis. Because of this he presented the emergency department. Patient notes that his most recent emesis was at approximate 6:00 PM. His most recent oral intake was at 9:00 AM this morning. He does report having history of a colonoscopy about 1-1/2 years ago at which time polyps were removed but no other remarkable findings were noted on the study. Patient notes that the only abdominal surgery he has had is a right open inguinal herniorrhaphy about 12 years ago and he notes that mesh was utilized. Patient notes he does not take any anticoagulants. In addition, he notes no close contacts are ill with similar symptoms. Since arrival to the hospital the patient has had labs and imaging which I independent reviewed. A CT scan of the abdomen pelvis showed the patient had some dilated small bowel loops noted in the abdomen and pelvis measuring up to 4 cm. A distal partial small bowel obstruction was noted with a transition point at about a segment of the ileum which appeared to have ileitis. There is no signs of appendicitis. There is no intraperitoneal free air or intraperitoneal free fluid. Labs include a CBC her white blood cell count and platelet count were normal. Hemoglobin and hematocrit were 13.8 and 41.1. Chemistry profile showed sodium and potassium along with the BUN and creatinine were normal. There is no elevation of patient's LFTs or lipase. At the time my interview he was resting comfortably bed and he was in no distress. Allergies Allergy/AdvReac Type Severity Reaction Status Date / Time No Known Allergies Allergy Verified 09/25/21 15:59 Home Medications Medication Instructions Recorded Confirmed Type No Known Home Medications 08/10/23 08/10/23 History Patient History Medical History Hx of hepatitis Hepatitis B (1984) Arthritis Marie catheter in place Kidney stones BPH (benign prostatic hyperplasia) GERD (gastroesophageal reflux disease) Prediabetes Post traumatic stress disorder Anxiety Restless leg syndrome History of asthma Surgical History History of open reduction and internal fixation (ORIF) procedure RT WRIST (HARDWARE REMOVED) History of cystoscopy History of tooth extraction History of hernia surgery Family History Father Diabetes Mother Breast cancer Other No family history of adverse response to anesthesia Social History Smoking Status: Current every day smoker Tobacco Type: Cigarettes Cigarettes Per Day: 1 pack; Second Hand Exposure: No; Do You Dip or Chew Tobacco: No; Hx Alcohol Use: No Hx Substance Use: Yes Last Used Substance: Hours (ago) Last Used Substance Other:: 24 hours ago Preferred Language: Amharic Communication Ability: Effective Counter Hand Required: No Beliefs That Will Affect Care: None Current Living Situation: Spouse Current Living Situation Comment: Lives alone in apartment Feels Safe at Home: Yes Assistive Devices: None Review of Systems Review of Systems: All systems reviewed & are unremarkable except as noted in HPI & below Physical Exam Constitutional: WD/WN, vitals as above Eyes: no conjunctival abnormality ENMT: Ears: no hearing impairment and no external ear abnormality Mouth: no oropharynx abnormality Neck: trachea midline Respiratory: normal respiratory effort; no respiratory distress and no labored breathing Cardiovascular: Rate/Rhythm: regular rate and regular rhythm Vessels: dorsalis pedis pulses present and radial pulses present Gastrointestinal (Abdomen): Abdomen is mildly distended and somewhat tympanic to percussion. There is no rebound tenderness or guarding. The patient had some slight tenderness to palpation just to the right of the umbilicus. There is otherwise no areas of tenderness with palpation. I do not appreciate any hernias. Musculoskeletal: No calf tenderness Skin: no rashes Neurologic: moves all extremities Psychiatric: A+Ox3, euthymic affect Results & Data Vital Signs (Past 12 Hours) Vital Signs Temp Pulse Pulse Resp BP BP Pulse Ox 08/10/23 21:08 46 L 18 121/80 97 08/10/23 19:36 55 L 18 99 08/10/23 19:36 55 L 18 137/84 99 08/10/23 19:27 48 L 08/10/23 19:17 36.7 C 50 L 19 143/84 H 96 O2 Del Method 08/10/23 21:08 Room Air 08/10/23 19:36 Room Air 08/10/23 19:36 Room Air 08/10/23 19:27 08/10/23 19:17 Room Air PG Care Time/CCT Total # of Minutes Spent Total Time Spent with Patient: Total time spent is greater than 50% in coordination of care (as documented) at patient's floor/unit and/or counseling patient: Coding Level of Care Code 16934 OFFICE CONSULT LVL Diagnoses Small bowel obstruction K56.609
--- NOTE | 2023-08-10 22:45 | History & Physical Report ---
Date of Service August 10, 2023 Assessment & Plan (1) Small bowel obstruction: Plan: 52-year-old male with past medical history significant for BPH s/p TURP, history of hepatitis B at the age of 15 as per patient,ongoing tobacco use, history of osteoarthritis,presents with abdominal pain and nausea and vomiting and found to small bowel obstruction. Patient states today afternoon he had couple of episodes of emesis, also abdominal pain 5/10 in severity in upper abdomen. Currently pain is improved. Had normal Bowel movement in the morning per patient. States is passing gas now. Denies any headache. No dizziness. No blurred vision. No runny nose or sore throat. Has cough from smoking. Some shortness of breath exertion. No chest pain. Appetite is okay. No difficulty swallowing. Denies any blood in the stools. Normal micturition. States had rash in the buttock region since one month. Currently resting comfortably and hemodynamic stable. small bowel obstruction presents with nausea vomiting abdominal pain and imaging studies showed small bowel obstruction n.p.o. IV fluids IV Dilaudid as needed surgery consult KUB in a.m. ileitis unclear etiology consult GI in a.m. history of BPH s/p TURP sinus bradycardia follow repeat EKG tobacco abuse needs counseling Rash on buttock per patient no obvious rash on exam will follow lyme screen DVT prophylaxis Lovenox disposition medical floor History of Present Illness Chief Complaint: small bowel obstruction Primary Care Provider: NO PCP 52-year-old male with past medical history significant for BPH s/p TURP, history of hepatitis B at the age of 15 as per patient,ongoing tobacco use, his tory of osteoarthritis,presents with abdominal pain and nausea and vomiting and found to small bowel obstruction. Patient states today afternoon he had couple of episodes of emesis, also abdominal pain 5/10 in severity in upper abdomen. Currently pain is improved. Had normal Bowel movement in the morning per patient. States is passing gas now. Denies any headache. No dizziness. No blurred vision. No runny nose or sore throat. Has cough from smoking. Some shortness of breath exertion. No chest pain. Appetite is okay. No difficulty swallowing. Denies any blood in the stools. Normal micturition. States had rash in the buttock region since one month. Currently resting comfortably and hemodynamic stable. Past medical history. As mentioned above past surgical history. Right inguinal hernia repair Show years ago. Prostate surgery as per patient. social history. Smokes 1 pack a day since age 15. No alcohol use. Smokes marijuana almost daily. family history. Father had PA at age of 51 as per records Allergies Allergy/AdvReac Type Severity Reaction Status Date / Time No Known Allergies Allergy Verified 09/25/21 15:59 Home Medications Medication Instructions Recorded Confirmed Type No Known Home Medications 08/10/23 08/10/23 History Past Med/Surg History Problem List Ileitis (Acute) Vomiting (Acute) Small bowel obstruction (Acute) Encounter for pre-operative examination Abdominal pain (Acute) Acute urinary retention (Acute) Hypokalemia Bladder stone Prostatic hypertrophy Medical History Hx of hepatitis Hepatitis B (1984) Arthritis Marie catheter in place Kidney stones BPH (benign prostatic hyperplasia) GERD (gastroesophageal reflux disease) Prediabetes Post traumatic stress disorder Anxiety Restless leg syndrome History of asthma Surgical History History of open reduction and internal fixation (ORIF) procedure RT WRIST (HARDWARE REMOVED) History of cystoscopy History of tooth extraction History of hernia surgery Family History Father Diabetes Mother Breast cancer Other No family history of adverse response to anesthesia Social History Smoking Status: Current every day smoker Tobacco Type: Cigarettes Cigarettes Per Day: 1 pack; Second Hand Exposure: No; Do You Dip or Chew Tobacco: No; Hx Alcohol Use: No Hx Substance Use: Yes Last Used Substance: Hours (ago) Last Used Substance Other:: 24 hours ago Preferred Language: [place] Islander Communication Ability: Effective Supervisor Vendor Quality Required: No Beliefs That Will Affect Care: None Current Living Situation: Spouse Current Living Situation Comment: Lives alone in apartment Feels Safe at Home: Yes Assistive Devices: None Review of Systems Review of Systems: All systems reviewed & are unremarkable except as noted in HPI & below Physical Exam Physical Exam: General-Not in distress Head- atraumatic Eyes- PERRL. ENT- oropharynx clear Neck- supple, no JVD. Lungs- clear to auscultation no wheezing or crackles. Heart- regular rhythm; no murmur, no gallop. Abdomen- Sluggish bowel sounds, soft, nontender, no distension. Extremities- no pretibial edema, no erythema seen. Neuro- alert, oriented x 3; PERRL moves extremities. Skin- warm & dry Results & Data Results & Data Vital Signs (Past 12 Hours) Vital Signs Temp Pulse Pulse Resp BP BP Pulse Ox 08/10/23 21:08 46 L 18 121/80 97 08/10/23 19:36 55 L 18 99 08/10/23 19:36 55 L 18 137/84 99 08/10/23 19:27 48 L 08/10/23 19:17 36.7 C 50 L 19 143/84 H 96 O2 Del Method 08/10/23 21:08 Room Air 08/10/23 19:36 Room Air 08/10/23 19:36 Room Air 08/10/23 19:27 08/10/23 19:17 Room Air Diagnostic Findings Laboratory Results WBC 8.29 K/ul (4.8-10.8) 08/10/23 19:26 RBC 4.66 M/uL (4.70-6.10) L 08/10/23 19:26 Hgb 13.8 g/dl (14.0-18.0) L 08/10/23 19:26 POC Hgb 13.9 g/dl (14.0-18.0) L 08/10/23 19:34 Hct 41.4 % (42.0-52.0) L 08/10/23 19: POC Hct 41 % (42-52) L 08/10/23 19:34 MCV 88.8 fL (80.0-100.0) 08/10/23 19: MCH 29.6 pg (25.0-34.0) 08/10/23 19: MCHC 33.3 g/dL (32.0-36.0) 08/10/23 19:26 RDW Std Deviation 41.6 fL (36.4-46.3) 08/10/23 19:26 RDW Coeff of Yesy 12.7 % (11.5-14.5) 08/10/23 19:26 Plt Count 218 K/uL (130-400) 08/10/23 19:26 MPV 9.4 fL (9.4-12.4) 08/10/23 19:26 Immature Gran % (Auto) 0.2 % 08/10/23 19:26 Neut % (Auto) 72.8 % 08/10/23 19:26 Lymph % (Auto) 17.4 % 08/10/23 19:26 [place] % (Auto) 8.1 % 08/10/23 19:26 Eos % (Auto) 1.1 % 08/10/23 19:26 Baso % (Auto) 0.4 % 08/10/23 19:26 Neut # (Auto) 6.04 K/uL (1.40-6.50) 08/10/23 19:26 Lymph # (Auto) 1.44 K/uL (1.20-3.40) 08/10/23 19:26 [place] # (Auto) 0.67 K/uL (0.11-0.59) H 08/10/23 19:26 Eos # (Auto) 0.09 K/uL (0.00-0.50) 08/10/23 19:26 Baso # (Auto) 0.03 K/uL (0.00-0.20) 08/10/23 19:26 Immature Gran # (Auto) 0.02 K/uL (0.01-0.20) 08/10/23 19:26 POC Sodium 139 mmol/L (135-144) 08/10/23 19:34 Sodium 140 mmol/L (136-145) 08/10/23 19:26 POC Potassium 3.8 mmol/L (3.3-5.0) 08/10/23 19:34 Potassium 3.7 mmol/L (3.5-5.1) 08/10/23 19:26 POC Chloride 102 mmol/L (101-112) 08/10/23 19:34 Chloride 103 mmol/L (98-107) 08/10/23 19:26 Carbon Dioxide 29 mmol/L (21-32) 08/10/23 19:26 POC Total CO2 26 mmol/L (24-31) 08/10/23 19:34 Anion Gap 8 (3-11) 08/10/23 19:26 POC Anion Gap 16.0 mmol/L (16-25) 08/10/23 19:34 POC BUN 18 mg/dl (7-18) 08/10/23 19:34 BUN 19 mg/dl (6-23) 08/10/23 19:26 Creatinine 1.09 mg/dl (0.6-1.4) 08/10/23 19:26 POC Creatinine 1.0 mg/dl (0.6-1.3) 08/10/23 19:34 Est Cr Clr Drug Dosing 73.6 ml/min 08/10/23 19:26 Est GFR ( Amer) 90.6 ml/min 08/10/23 19:26 Est GFR (Non-Af Amer) 78.2 ml/min 08/10/23 19:26 BUN/Creatinine Ratio 17.4 (10-20) 08/10/23 19:26 Glucose 104 mg/dl (70-99(Fasting)) H 08/10/23 19:26 POC Glucose (other) 107 mg/dl (70-99) H 08/10/23 19:34 Calcium 8.8 mg/dl (8.6-10.3) 08/10/23 19:26 POC Ioniz Calcium [place] 1.07 mmol/l (1.12-1.32) L 08/10/23 19:34 Total Bilirubin 0.5 mg/dl (0.2-1.0) 08/10/23 19:26 AST 17 U/L (13-39) 08/10/23 19:26 ALT 16 U/L (7-52) 08/10/23 19:26 Alkaline Phosphatase 94 U/L (34-104) 08/10/23 19:26 Troponin I High Sens 3.5 pg/ml (0-20) 08/10/23 19:26 Total Protein 6.9 gm/dl (6.0-8.3) 08/10/23 19:26 Albumin 4.3 gm/dl (3.4-5.0) 08/10/23 19:26 Globulin 2.6 gm/dl (2.5-4.0) 08/10/23 19:26 Albumin/Globulin Ratio 1.7 (0.9-2) 08/10/23 19:26 Lipase 4 U/L (11-82) L 08/10/23 19:26 Impressions Abdomen/Pelvis CT 08/10/23 19:21 Exam(s): CT ABDOMEN + PELVIS With Contrast IV Amt: 93ml EXAM: CT Abdomen and Pelvis With Intravenous Contrast CLINICAL HISTORY: Reason for exam: vomiting. TECHNIQUE: Axial computed tomography images of the abdomen and pelvis with intravenous contrast. CTDI is 8.64 mGy and DLP is 434.73 mGy-cm. Automated exposure control was utilized for the study. A dose lowering technique was utilized adhering to the principles of ALARA. CONTRAST: Patient received 93ml of IV contrast COMPARISON: No relevant prior studies available. FINDINGS: Lung bases: Unremarkable. No mass. No consolidation. ABDOMEN: Liver: Subcentimeter hepatic cysts are seen. Gallbladder and bile ducts: Unremarkable. No calcified stones. No ductal dilation. Pancreas: Unremarkable. No mass. No ductal dilation. Spleen: Unremarkable. No splenomegaly. Adrenals: Unremarkable. No mass. Kidneys and ureters: Unremarkable. No solid mass. No hydronephrosis. Stomach and bowel: Dilated small bowel loops seen in the abdomen and pelvis, measuring up to 4 cm in diameter. There is a 20 cm long segment of distal small bowel demonstrating wall thickening with more proximal small bowel feces sign. PELVIS: Appendix: No findings to suggest acute appendicitis. Bladder: Unremarkable. No mass. Reproductive: Unremarkable as visualized. ABDOMEN and PELVIS: Intraperitoneal space: Unremarkable. No free air. No significant fluid collection. Bones/joints: No acute fracture. No dislocation. Soft tissues: Unremarkable. Vasculature: Unremarkable. No abdominal aortic aneurysm. Lymph nodes: Unremarkable. No enlarged lymph nodes. IMPRESSION: Distal partial small bowel obstruction with transition point in a segment of distal ileitis Electronically signed by: Cliff Martinez MD 08/10/23 21:34 PM ECG Additional Comments: ECG. Sinus bradycardia 46. No significant change was found. Code Status & VTE Plan VTE Prophylaxis Plan VTE Prophylaxis will be ordered: Yes
[2023-08-10] MEDS ORDERED: HYDROmorphone INJ 0.5 MG/0.5 ML SYR IV PRN (23:22)
[2023-08-10] MEDS ORDERED: ONDANSETRON INJ 2 MG/ML 2 ML VIAL IV PRN (23:22)
[2023-08-10 23:58] LABS: Appearance Urine Clear (Clear); Bilirubin Urine Negative (Negative); Blood Urine Negative (Negative); Color Urine Yellow; Glucose Urine UA Negative (Negative); Ketones Urine 2+ (Negative); Leukocyte Esterase Urine Negative (Negative); Nitrite Urine Negative (Negative); Protein Urine Negative (Negative); Specific Gravity Urine > 1.045 (1.000-1.030); Urobilinogen Urine Negative (Negative); pH Urine 6.5 (4.5-7.5)
[2023-08-11] MEDS: D5W AND 1/2NSS 1,000 ML IV SCH (00:19)
[2023-08-11] MEDS: ACETAMINOPHEN 1,000 MG/100 ML VIAL IV PRN (00:21)
[2023-08-11] MEDS: ENOXAPARIN INJ 40 MG/0.4 ML SYR SQ SCH (00:46)
--- NOTE | 2023-08-11 06:47 | Surgery Progress Note ---
Date of Service August 11, 2023 Assessment & Plan (1) Ileitis: Plan: More likely ileitis than small bowel obstruction given his history and presentation. If he does well could consider a trial of clears. Could also consider antibiotics for his ileitis. I suppose this could also be a later in life presentation of Crohn's. Would consider conservative management with no indication for surgical intervention at this time. [facility] surgeons covering for the weekend. (2) Small bowel obstruction: Admission and Anticipated Discharge Date Admission Date: August 10, 2023 Subjective Patient seen. Feeling okay. Still some mild abdominal discomfort but improved. No bowel movements. No more nausea or vomiting. Physical Exam Constitutional: WD/WN, vitals as above no acute distress and not ill appearing Eyes: PERRL, conjunctivae normal, anicteric sclerae EOM intact bilaterally ENMT: external ear and nose normal, oropharynx normal Ears: no hearing impairment Neck: trachea midline, no thyromegaly Respiratory: normal respiratory effort; no respiratory distress and does not use accessory muscles Cardiovascular: Rate/Rhythm: regular rate and regular rhythm Gastrointestinal (Abdomen): Alert no acute distress. Abdomen is mildly tender. Is not particularly distended. Skin: no rashes, warm and dry Psychiatric: Orientation: alert, oriented x 3 and cooperative Results & Data Vital Signs (Past 12 Hours) Vital Signs Temp Pulse Pulse Pulse Resp BP BP 08/10/23 23:46 36.5 C 55 L 16 104/67 08/10/23 23:20 36.5 C 55 L 15 104/67 08/10/23 21:08 46 L 18 121/80 08/10/23 19:36 55 L 18 08/10/23 19:36 55 L 18 137/84 08/10/23 19:27 48 L 08/10/23 19:17 36.7 C 50 L 19 143/84 H Pulse Ox O2 Del Method 08/10/23 23:46 98 Room Air 08/10/23 23:20 98 Room Air 08/10/23 21:08 97 Room Air 08/10/23 19:36 99 Room Air 08/10/23 19:36 99 Room Air 08/10/23 19:27 08/10/23 19:17 96 Room Air PG Care Time/CCT Total # of Minutes Spent Total Time Spent with Patient: Total time spent is greater than 50% in coordination of care (as documented) at patient's floor/unit and/or counseling patient: Coding Level of Care Code 57308 SUB INP/OBS CARE Diagnoses Ileitis K52.9 Small bowel obstruction K56.609
[2023-08-11 06:55] LABS: Basophils # (auto) 0.02 K/uL (0.00-0.20); Basophils % (auto) 0.3 %; Eosinophils # (auto) 0.05 K/uL (0.00-0.50); Eosinophils % (auto) 0.8 %; Hematocrit (blood only) 36.5 % (42.0-52.0); Hemoglobin 12.2 g/dl (14.0-18.0); Immature Granulocytes # (auto) 0.02 K/uL (0.01-0.20); Immature Granulocytes % (auto) 0.3 %; Lymphocytes # (auto) 1.41 K/uL (1.20-3.40); Lymphocytes % (auto) 22.4 %; Mean Corpuscular Hemoglobin 29.6 pg (25.0-34.0); Mean Corpuscular Hgb Conc 33.4 g/dL (32.0-36.0); Mean Corpuscular Volume 88.6 fL (80.0-100.0); Mean Platelet Volume 9.4 fL (9.4-12.4); Monocytes # (auto) 0.51 K/uL (0.11-0.59); Monocytes % (auto) 8.1 %; Neutrophils # (auto) 4.28 K/uL (1.40-6.50); Neutrophils % (auto) 68.1 %; Platelet Count 177 K/uL (130-400); RDW Coefficient of Variation 12.9 % (11.5-14.5); RDW Standard Deviation 41.8 fL (36.4-46.3); Red Blood Count 4.12 M/uL (4.70-6.10); White Blood Count 6.29 K/ul (4.8-10.8)
[2023-08-11 07:12] LABS: Anion Gap 3 (3-11); BUN Creatinine Ratio 18.2 (10-20); Blood Urea Nitrogen 16 mg/dl (6-23); C Reactive Protein < 0.50 mg/dl (0-0.5); Calcium 7.6 mg/dl (8.6-10.3); Carbon Dioxide 29 mmol/L (21-32); Chloride 107 mmol/L (98-107); Creatinine Clr Calc Pharmacy 89.6 ml/min; Est GFR (African American) 115.3 ml/min; Est GFR (Non-African American) 99.5 ml/min; Glucose 104 mg/dl (70-99(Fasting)); Magnesium 1.8 mg/dl (1.7-2.4); Potassium 3.7 mmol/L (3.5-5.1); Sodium 139 mmol/L (136-145)
--- NOTE | 2023-08-11 08:19 | XRay Report ---
SINGLE VIEW CHEST CLINICAL HISTORY: Vomiting FINDINGS: An AP, portable, upright chest radiograph is compared to study dated 09/23/2021. The heart i s mildly enlarged noting atherosclerotic calcification of the thoracic aorta. The pulmonary vasculatu re is noncongested. Chronic interstitial thickening is similar to previous. There is mild bibasilar s carring/atelectasis there The lungs and pleural spaces are otherwise clear. No pneumothorax is seen. The skeletal structures are osteopenic. The bony thorax is grossly intact. IMPRESSION: Mild cardiomegaly with no active disease in the chest. ACT 112: Negative or not required by law. Electronically signed by: Everardo Ngo M.D. 08/11/2023 8:17 AM
[2023-08-11 10:14] LABS: Lyme Screen Rflx Confirmation Positive (Negative)
[2023-08-11 10:48] LABS: Lyme Ab IgG 2nd Tier Confirm Positive (Negative)
[2023-08-11 10:49] LABS: Lyme Ab IgM 2nd Tier Confirm Negative (Negative)
--- NOTE | 2023-08-11 11:37 | Gastrointestinal Consultation ---
Date of Consultation August 11, 2023 Assessment & Plan (1) Small bowel obstruction: -Treatment per general surgery & hospitalist team -Recently had an unremarkable colonoscopy per his reports with [facility]. He can follow-up with them as an outpatient when acute SBO resolves to decide if a repeat colonoscopy is necessary to rule out Crohn's Disease. Supervising Physician Co-Signing Physician Notes Agree with TRUE Kim as above Interviewed and examined patient and agree with above Abd: Soft, NT, ND, +BS Continue current therapy and supportive care History of Present Illness Reason for Consultation: SBO Attending Physician: Leonides Bello MD History of Present Illness Patient is a 52 yo male with PMH of BPH, hep B, tobacco use, and osteoarthritis who presented to the ED with vomiting and abdominal pain. Pain was a sharp cramping in the mid abdomen. He denied diarrhea or GI bleeding. He had a CT scan that showed a distal partial small bowel obstruction with a transition point in the ileum. GI has been consulted for evaluation. Surgery is following patient. He is moving his bowels. He notes his pain is improved. He is NPO. No NG at present. He notes a colonoscopy in the past with [facility], but does not specify dates. He thinks it was in the past 1 year and notes no abnormalities. Surgical history includes a right inguinal hernia repair. Allergies Allergy/AdvReac Type Severity Reaction Status Date / Time No Known Allergies Allergy Verified 09/25/21 15:59 Home Medications Medication Instructions Recorded Confirmed Type No Known Home Medications 08/10/23 08/10/23 History Patient History Medical History Hx of hepatitis Hepatitis B (1984) Arthritis Marie catheter in place Kidney stones BPH (benign prostatic hyperplasia) GERD (gastroesophageal reflux disease) Prediabetes Post traumatic stress disorder Anxiety Restless leg syndrome History of asthma Surgical History History of open reduction and internal fixation (ORIF) procedure RT WRIST (HARDWARE REMOVED) History of cystoscopy History of tooth extraction History of hernia surgery Family History Father Diabetes Mother Breast cancer Other No family history of adverse response to anesthesia Social History Smoking Status: Current every day smoker Tobacco Type: Cigarettes Cigarettes Per Day: 1 pack; Second Hand Exposure: No; Do You Dip or Chew Tobacco: No; Hx Alcohol Use: No Hx Substance Use: Yes Last Used Substance: Hours (ago) Last Used Substance Other:: 24 hours ago Preferred Language: [place] Communication Ability: Effective General Dentist/Owner Required: No Beliefs That Will Affect Care: None Current Living Situation: Spouse Current Living Situation Comment: Lives alone in apartment Feels Safe at Home: Yes Assistive Devices: None Review of Systems Constitutional: no fever and no chills Respiratory: no cough and no dyspnea Gastrointestinal: no abdominal pain, no diarrhea/loose stools and no blood in stools Physical Exam Constitutional: well developed Respiratory: normal respiratory effort Gastrointestinal (Abdomen): normal bowel sounds, soft, nontender, no hepatosplenomegaly Psychiatric: Orientation: alert and oriented x 3 Results & Data Vital Signs (Past 12 Hours) Vital Signs Temp Pulse Resp BP Pulse Ox O2 Del Method 08/11/23 07:22 36.7 C 50 L 16 110/63 97 Room Air 08/10/23 23:46 36.5 C 55 L 16 104/67 98 Room Air PG Care Time/CCT Total # of Minutes Spent Total Time Spent with Patient: Total time spent is greater than 50% in coordination of care (as documented) at patient's floor/unit and/or counseling patient: Coding Level of Care Code 49418 IN/OBS CONSULT LVL 4,60M Diagnoses Small bowel obstruction K56.609
--- NOTE | 2023-08-11 15:33 | Hospitalist Progress Note ---
Date of Service August 11, 2023 Assessment & Plan (1) Small bowel obstruction: Plan: 52-year-old male with past medical history significant for BPH s/p TURP, history of hepatitis B at the age of 15 as per patient,ongoing tobacco use, history of osteoarthritis,presents with abdominal pain and nausea and vomiting and found to small bowel obstruction. Patient states today afternoon he had couple of episodes of emesis, also abdominal pain 5/10 in severity in upper abdomen. Currently pain is improved. Had normal Bowel movement in the morning per patient. States is passing gas now. Denies any headache. No dizziness. No blurred vision. No runny nose or sore throat. Has cough from smoking. Some shortness of breath exertion. No chest pain. Appetite is okay. No difficulty swallowing. Denies any blood in the stools. Normal micturition. States had rash in the buttock region since one month. Currently resting comfortably and hemodynamic stable. Small bowel obstruction Presents with nausea vomiting abdominal pain and imaging studies showed small bowel obstruction IV fluids, has been on n.p.o. IV Dilaudid as needed Surgery consult-appreciate surgery input and recommendation Clinically much better with improvement of abdominal pain and distention Has been passing gas Will start clears orally Ileitis Unclear etiology Possible thickening of the terminal ileum in CAT scan No obvious history suggestive of diarrhea and/or bleeding per rectum If abdominal pain persist will have a GI evaluation in the outpatient-rule out possibility of Crohn's Doubt any antibiotic is indicated History of BPH s/p TURP Sinus bradycardia follow repeat EKG Tobacco abuse needs counseling Rash on buttock per patient no obvious rash on exam will follow lyme screen DVT prophylaxis Lovenox disposition medical floor Admission and Anticipated Discharge Date Admission Date: August 10, 2023 Subjective 08/11/2023 The patient was seen and examined in medical floor He has been feeling much better and without any abdominal distention, nausea and or vomiting Has been passing gas Denies any other significant symptoms Review of Systems Review of Systems: All systems reviewed and are unremarkable except as noted below Physical Exam Physical Exam: Lying in bed comfortably Constitutional: average body habitus; not ill appearing Eyes: PERRL, conjunctivae normal, anicteric sclerae ENMT: external ear and nose normal, oropharynx normal Neck: trachea midline, no thyromegaly Respiratory: no respiratory distress Auscultation: lungs clear to a uscultation bilaterally Cardiovascular: Rate/Rhythm: regular rate, regular rhythm and + bradycardic Heart Sounds: normal S1 and normal S2; no murmur Extremities: no edema Gastrointestinal (Abdomen): Inspection/Auscultation: normal bowel sounds; abdomen not distended Percussion/Palpation: abdomen soft; abdomen nontender Musculoskeletal: No acute arthritis involving any of the joint Neurologic: normal touch/pain/proprioception and moves all extremities; no focal motor deficits Psychiatric: A+Ox3, euthymic affect Lymphatic: no cervical or axillary lymphadenopathy Results & Data Results & Data Vital Signs (Past 12 Hours) Vital Signs Temp Pulse Resp BP Pulse Ox O2 Del Method 08/11/23 15:06 36.7 C 55 L 16 108/63 96 Room Air 08/11/23 07:22 36.7 C 50 L 16 110/63 97 Room Air Laboratory Results Short CBC 08/10/23 08/11/23 Range/Units 19:26 06:40 WBC 8.29 6.29 (4.8-10.8) K/ul Hgb 13.8 L 12.2 L (14.0-18.0) g/dl Hct 41.4 L 36.5 L (42.0-52.0) % Plt Count 218 177 (130-400) K/uL BMP 08/10/23 08/11/23 19:26 06:40 Sodium 140 139 Potassium 3.7 3.7 Chloride 103 107 Carbon Dioxide 29 29 BUN 19 16 Creatinine 1.09 0.88 Glucose 104 H 104 H Calcium 8.8 7.6 L Liver Function 08/10/23 Range/Units 19:26 Total Bilirubin 0.5 (0.2-1.0) mg/dl AST 17 (13-39) U/L ALT 16 (7-52) U/L Alkaline Phosphatase 94 (34-104) U/L Albumin 4.3 (3.4-5.0) gm/dl Urine 08/10/23 Range/Units 23:30 Urine Color Yellow Urine Appearance Clear (Clear) Urine pH 6.5 (4.5-7.5) Ur Specific [place] > 1.045 H (1.000-1.030) Urine Protein Negative (Negative) Urine Glucose (UA) Negative (Negative) Medications Administered Current Inpatient Medications Enoxaparin Sodium (Enoxaparin Inj 40 Mg/0.4 Ml Syr) 40 mg SQ HS BARTOLO Stop: 09/09/23 23:21 Last Admin: 08/11/23 00:46 Dose: 40 mg Hydromorphone HCl (Hydromorphone Inj 0.5 Mg/0.5 Ml Syr) 0.5 mg IV Q4H PRN PRN Reason: Mod-Sev Pain (Scale 4-10) Stop: 08/24/23 23:21 Dextrose/Sodium Chloride (D5w And 1/2nss) 1,000 mls @ 125 mls/hr IV .Q8H BARTOLO Stop: 09/09/23 23:21 Last Admin: 08/11/23 08:40 Dose: 125 mls/hr Acetaminophen (Ofirmev) 1,000 mg in 100 mls @ 400 mls/hr IV Q8H PRN PRN Reason: Pain or Fever Stop: 08/13/23 23:21 Last Infusion: 08/11/23 00:40 Dose: Infused Ondansetron HCl (Ondansetron Inj 2 Mg/Ml 2 Ml Vial) 4 mg IV Q6H PRN PRN Reason: Nausea Stop: 09/09/23 23:21
--- NOTE | 2023-08-11 18:36 | Electrocardiogram Report ---
Test Reason : Blood Pressure : / mmHG Vent. Rate : 046 BPM Atrial Rate : 046 BPM P-R Int : 130 ms QRS Dur : 092 ms QT Int : 468 ms P-R-T Axes : 047 -04 046 degrees QTc Int : 409 ms Sinus bradycardia Otherwise normal ECG When compared with ECG of 23-SEP-2021 13:41, No significant change was found Confirmed by Kamran Quintero ([id number]) on 08/11/2023 6:35:55 PM Referred By: REFERRED SELF Confirmed By:Kamran Quintero
[2023-08-12 07:05] LABS: Basophils # (auto) 0.02 K/uL (0.00-0.20); Basophils % (auto) 0.3 %; Eosinophils # (auto) 0.06 K/uL (0.00-0.50); Hematocrit (blood only) 37.8 % (42.0-52.0); Hemoglobin 12.7 g/dl (14.0-18.0); Immature Granulocytes # (auto) 0.01 K/uL (0.01-0.20); Immature Granulocytes % (auto) 0.2 %; Lymphocytes # (auto) 1.23 K/uL (1.20-3.40); Lymphocytes % (auto) 20.6 %; Mean Corpuscular Hemoglobin 29.5 pg (25.0-34.0); Mean Corpuscular Hgb Conc 33.6 g/dL (32.0-36.0); Mean Corpuscular Volume 87.7 fL (80.0-100.0); Mean Platelet Volume 10.1 fL (9.4-12.4); Monocytes # (auto) 0.52 K/uL (0.11-0.59); Monocytes % (auto) 8.7 %; Neutrophils # (auto) 4.14 K/uL (1.40-6.50); Neutrophils % (auto) 69.2 %; Platelet Count 190 K/uL (130-400); RDW Coefficient of Variation 12.5 % (11.5-14.5); RDW Standard Deviation 40.1 fL (36.4-46.3); Red Blood Count 4.31 M/uL (4.70-6.10); White Blood Count 5.98 K/ul (4.8-10.8)
[2023-08-12 07:08] LABS: Anion Gap 6 (3-11); BUN Creatinine Ratio 9.8 (10-20); Blood Urea Nitrogen 8 mg/dl (6-23); C Reactive Protein < 0.50 mg/dl (0-0.5); Calcium 8.1 mg/dl (8.6-10.3); Carbon Dioxide 26 mmol/L (21-32); Chloride 107 mmol/L (98-107); Creatinine Clr Calc Pharmacy 96.2 ml/min; Est GFR (African American) 118.7 ml/min; Est GFR (Non-African American) 102.4 ml/min; Glucose 101 mg/dl (70-99(Fasting)); Potassium 3.7 mmol/L (3.5-5.1); Sodium 139 mmol/L (136-145)
--- NOTE | 2023-08-12 13:39 | Hospitalist Progress Note ---
Date of Service August 12, 2023 Assessment & Plan (1) Small bowel obstruction: Plan: 52-year-old male with past medical history significant for BPH s/p TURP, history of hepatitis B at the age of 15 as per patient,ongoing tobacco use, history of osteoarthritis,presents with abdominal pain and nausea and vomiting and found to small bowel obstruction. Patient states today afternoon he had couple of episodes of emesis, also abdominal pain 5/10 in severity in upper abdomen. Currently pain is improved. Had normal Bowel movement in the morning per patient. States is passing gas now. Denies any headache. No dizziness. No blurred vision. No runny nose or sore throat. Has cough from smoking. Some shortness of breath exertion. No chest pain. Appetite is okay. No difficulty swallowing. Denies any blood in the stools. Normal micturition. States had rash in the buttock region since one month. Currently resting comfortably and hemodynamic stable. Small bowel obstruction Presents with nausea vomiting abdominal pain and imaging studies showed small bowel obstruction IV fluids, has been on n.p.o. IV Dilaudid as needed Surgery consult-appreciate surgery input and recommendation Clinically much better with improvement of abdominal pain and distention Has been passing gas He has been tolerating clears and denies any significant symptoms Bowel has been moving Will advance diet as tolerated and if tolerating regular diet by supper will be discharged home Ileitis Unclear etiology Possible thickening of the terminal ileum in CAT scan No obvious history suggestive of diarrhea and/or bleeding per rectum If abdominal pain persist will have a GI evaluation in the outpatient-rule out possibility of Crohn's Doubt any antibiotic is indicated Advised to have GI appointment as an outpatient if the symptom recurs or persist History of BPH s/p TURP Sinus bradycardia follow repeat EKG Tobacco abuse needs counseling Rash on buttock per patient no obvious rash on exam will follow lyme screen DVT prophylaxis Lovenox disposition medical floor Admission and Anticipated Discharge Date Admission Date: August 10, 2023 Subjective 08/11/2023 The patient was seen and examined in medical floor He has been feeling much better and without any abdominal distention, nausea and or vomiting Has been passing gas Denies any other significant symptoms 08/12/2023 The patient was seen and examined in medical floor He has been feeling much better and does not have any abdominal symptoms No bloating, no pain, no nausea no vomiting and bowel has been moving Will advance diet and if tolerated regular food by suppertime he will be discharged home this evening Review of Systems Review of Systems: All systems reviewed and are unremarkable except as noted below Physical Exam Physical Exam: Lying in bed comfortably Constitutional: average body habitus; not ill appearing Eyes: PERRL, conjunctivae normal, anicteric sclerae ENMT: external ear and nose normal, oropharynx normal Neck: trachea midline, no thyromegaly Respiratory: no respiratory distress Auscultation: lungs clear to auscultation bilaterally Cardiovascular: Rate/Rhythm: regular rate, regular rhythm and + bradycardic Heart Sounds: normal S1 and normal S2; no murmur Extremities: no edema Gastrointestinal (Abdomen): Inspection/Auscultation: normal bowel sounds; abdomen not distended Percussion/Palpation: abdomen soft; abdomen nontender Musculoskeletal: No acute arthritis involving any of the joint Neurologic: normal touch/pain/proprioception and moves all extremities; no focal motor deficits Psychiatric: A+Ox3, euthymic affect Lymphatic: no cervical or axillary lymphadenopathy Results & Data Results & Data Vital Signs (Past 12 Hours) Vital Signs Temp Pulse Resp BP Pulse Ox O2 Del Method 08/12/23 07:21 36.6 C 46 L 18 118/68 97 Room Air Laboratory Results Short CBC 08/12/23 Range/Units 05:41 WBC 5.98 (4.8-10.8) K/ul Hgb 12.7 L (14.0-18.0) g/dl Hct 37.8 L (42.0-52.0) % Plt Count 190 (130-400) K/uL BMP 08/12/23 05:41 Sodium 139 Potassium 3.7 Chloride 107 Carbon Dioxide 26 BUN 8 Creatinine 0.82 Glucose 101 H Calcium 8.1 L Medications Administered Current Inpatient Medications Enoxaparin Sodium (Enoxaparin Inj 40 Mg/0.4 Ml Syr) 40 mg SQ HS BARTOLO Stop: 09/09/23 23:21 Last Admin: 08/11/23 20:37 Dose: 40 mg Hydromorphone HCl (Hydromorphone Inj 0.5 Mg/0.5 Ml Syr) 0.5 mg IV Q4H PRN PRN Reason: Mod-Sev Pain (Scale 4-10) Stop: 08/24/23 23:21 Dextrose/Sodium Chloride (D5w And 1/2nss) 1,000 mls @ 125 mls/hr IV .Q8H BARTOLO Stop: 09/09/23 23:21 Last Admin: 08/12/23 08:31 Dose: 125 mls/hr Acetaminophen (Ofirmev) 1,000 mg in 100 mls @ 400 mls/hr IV Q8H PRN PRN Reason: Pain or Fever Stop: 08/13/23 23:21 Last Infusion: 08/12/23 00:55 Dose: Infused Ondansetron HCl (Ondansetron Inj 2 Mg/Ml 2 Ml Vial) 4 mg IV Q6H PRN PRN Reason: Nausea Stop: 09/09/23 23:21
[2023-08-12 15:06] VITALS: BP 129/72; RESP 16; TEMP 97.2; O2SAT 98
--- NOTE | 2023-08-12 16:25 | Surgery Progress Note ---
Date of Service August 12, 2023 Assessment & Plan (1) Ileitis: Plan: Improved. Agree with advancement of diet and discharge if tolerates. Will sign off. Please call with questions. Admission and Anticipated Discharge Date Admission Date: August 10, 2023 Subjective Passed a lot of gas yesterday. Pain has completely resolved. Has tolerated three trays of liquids. Awaiting regular food and probable discharge. Physical Exam Constitutional: WD/WN, vitals as above Gastrointestinal (Abdomen): normal bowel sounds, soft, nontender, no hepatosplenomegaly Neurologic: awake; no focal motor deficits Psychiatric: A+Ox3, euthymic affect Results & Data Vital Signs (Past 12 Hours) Vital Signs Temp Pulse Resp BP Pulse Ox O2 Del Method 08/12/23 15:06 36.2 C L 45 L 16 129/72 98 Room Air 08/12/23 07:21 36.6 C 46 L 18 118/68 97 Room Air Laboratory Results 08/12/23 Range/Units 05:41 WBC 5.98 (4.8-10.8) K/ul RBC 4.31 L (4.70-6.10) M/uL Hgb 12.7 L (14.0-18.0) g/dl Hct 37.8 L (42.0-52.0) % MCV 87.7 (80.0-100.0) fL MCH 29.5 (25.0-34.0) pg MCHC 33.6 (32.0-36.0) g/dL RDW Std Deviation 40.1 (36.4-46.3) fL RDW Coeff of Yesy 12.5 (11.5-14.5) % Plt Count 190 (130-400) K/uL MPV 10.1 (9.4-12.4) fL Immature Gran % (Auto) 0.2 % Neut % (Auto) 69.2 % Lymph % (Auto) 20.6 % [place] % (Auto) 8.7 % Eos % (Auto) 1.0 % Baso % (Auto) 0.3 % Neut # (Auto) 4.14 (1.40-6.50) K/uL Lymph # (Auto) 1.23 (1.20-3.40) K/uL [place] # (Auto) 0.52 (0.11-0.59) K/uL Eos # (Auto) 0.06 (0.00-0.50) K/uL Baso # (Auto) 0.02 (0.00-0.20) K/uL Immature Gran # (Auto) 0.01 (0.01-0.20) K/uL Sodium 139 (136-145) mmol/L Potassium 3.7 (3.5-5.1) mmol/L Chloride 107 (98-107) mmol/L Carbon Dioxide 26 (21-32) mmol/L Anion Gap 6 (3-11) BUN 8 (6-23) mg/dl Creatinine 0.82 (0.6-1.4) mg/dl Est Cr Clr Drug Dosing 96.2 ml/min Est GFR ( Amer) 118.7 ml/min Est GFR (Non-Af Amer) 102.4 ml/min BUN/Creatinine Ratio 9.8 L (10-20) Glucose 101 H (70-99(Fasting)) mg/dl Calcium 8.1 L (8.6-10.3) mg/dl C-Reactive Protein < 0.50 (0-0.5) mg/dl
[2023-08-12 17:11] VITALS: PULSE 46
--- NOTE | 2023-08-13 07:32 | Discharge Summary ---
Date of Service August 13, 2023 Admission HPI Per Admitting Provider 52-year-old male with past medical history significant for BPH s/p TURP, history of hepatitis B at the age of 15 as per patient,ongoing tobacco use, history of osteoarthritis,presents with abdominal pain and nausea and vomiting and found to small bowel obstruction. Patient states today afternoon he had couple of episodes of emesis, also abdominal pain 5/10 in severity in upper abdomen. Currently pain is improved. Had normal Bowel movement in the morning per patient. States is passing gas now. Denies any headache. No dizziness. No blurred vision. No runny nose or sore throat. Has cough from smoking. Some shortness of breath exertion. No chest pain. Appetite is okay. No difficulty swallowing. Denies any blood in the stools. Normal micturition. States had rash in the buttock region since one month. Currently resting comfortably and hemodynamic stable. Past medical history. As mentioned above past surgical history. Right inguinal hernia repair Show years ago. Prostate surgery as per patient. social history. Smokes 1 pack a day since age 15. No alcohol use. Smokes marijuana almost daily. family history. Father had IL at age of 51 as per records Admission Exam Per Admitting Provider Physical Exam: General-Not in distress Head- atraumatic Eyes- PERRL. ENT- oropharynx clear Neck- supple, no JVD. Lungs- clear to auscultation no wheezing or crackles. Heart- regular rhythm; no murmur, no gallop. Abdomen- Sluggish bowel sounds, soft, nontender, no distension. Extremities- no pretibial edema, no erythema seen. Neuro- alert, oriented x 3; PERRL moves extremities. Skin- warm & dry Principal Diagnosis SBO- resolved Discharge Exam Lying in bed comfortably Constitutional average body habitus; not ill appearing Eyes PERRL, conjunctivae normal, anicteric sclerae ENMT external ear and nose normal, oropharynx normal Neck trachea midline, no thyromegaly Respiratory no respiratory distress Auscultation: lungs clear to auscultation bilaterally Cardiovascular Rate/Rhythm: regular rate, regular rhythm and + bradycardic Heart Sounds: normal S1 and normal S2; no murmur Extremities: no edema Gastrointestinal (Abdomen) Inspection/Auscultation: normal bowel sounds; abdomen not distended Percussion/Palpation: abdomen soft; abdomen nontender Neurologic normal touch/pain/proprioception and moves all extremities; no focal motor deficits Psychiatric A+Ox3, euthymic affect Lymphatic no cervical or axillary lymphadenopathy Discharge Data Allergies Allergy/AdvReac Type Severity Reaction Status Date / Time No Known Allergies Allergy Verified 09/25/21 15:59 Consultations 08/10/23 21:40 Consult General Surgery Routine 08/10/23 21:41 ED Decision to Admit Stat 08/11/23 08:00 Consult Gastroenterology Routine Ordered Studies 08/10/23 19:21 CT abd pelvis IV con only Stat Hospital Course (1) Small bowel obstruction: 52-year-old male with past medical history significant for BPH s/p TURP, history of hepatitis B at the age of 15 as per patient,ongoing tobacco use, history of osteoarthritis,presents with abdominal pain and nausea and vomiting and found to small bowel obstruction. Patient states today afternoon he had couple of episodes of emesis, also abdominal pain 5/10 in severity in upper abdomen. Currently pain is improved. Had normal Bowel movement in the morning per patient. States is passing gas now. Denies any headache. No dizziness. No blurred vision. No runny nose or sore throat. Has cough from smoking. Some shortness of breath exertion. No chest pain. Appetite is okay. No difficulty swallowing. Denies any blood in the stools. Normal micturition. States had rash in the buttock region since one month. Currently resting comfortably and hemodynamic stable. Small bowel obstruction Presents with nausea vomiting abdominal pain and imaging studies showed small bowel obstruction IV fluids, has been on n.p.o. IV Dilaudid as needed Surgery consult-appreciate surgery input and recommendation Clinically much better with improvement of abdominal pain and distention Has been passing gas He has been tolerating clears and denies any significant symptoms Bowel has been moving Will advance diet as tolerated and if tolerating regular diet by supper will be discharged home Ileitis Unclear etiology Possible thickening of the terminal ileum in CAT scan No obvious history suggestive of diarrhea and/or bleeding per rectum If abdominal pain persist will have a GI evaluation in the outpatient-rule out possibility of Crohn's Doubt any antibiotic is indicated Advised to have GI appointment as an outpatient if the symptom recurs or persist History of BPH s/p TURP Sinus bradycardia follow repeat EKG Tobacco abuse needs counseling Rash on buttock per patient no obvious rash on exam will follow lyme screen DVT prophylaxis Lovenox disposition medical floor Total Time Total Time Spent Total Time Spent (In Minutes): 35 minutes Discharge Plan Discharge Items Patient Disposition: Home - Self-Care Reason For Visit: SBO Discharge Diagnosis: SBO- resolved Condition on Discharge: Good Activity: Resume your previous activity Non-emergency contact: Primary Care Provider Call non-emergency contact if: you have any medication questions and your symptoms worsen Follow-up/Referrals: PCP,NO [Primary Care Provider] - ( please make an appointment with your PCP within 7 days) Diet: Low Fiber Addtl Attending Provider Instructions: Please take precautions to avoid falls Low fiber diet Please make an appointment with your PCP within 7 days 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 Pending Studies at Discharge: No Stand-Alone Forms: My [employer], Smoking Cessation Medications and DC Order Prescriptions: No Action No Known Home Medications Discharge Orders: Discharge Order (Routine); Ordered 08/12/23 Ordered By: Leonides Bazan/Other Patient Handouts: Small Bowel Obstruction, Low-Fiber Diet Admission Data Admit Date/Time: 08/10/23 22:33 Attending Provider: Leonides Bello Admit Provider: Wai Oh Primary Care Provider: PCP,NO Other Providers: Jeevan Everett; Wai Oh; Steven Thakur; Zane Ann; Puja Anthony; Sabi Valencia; Katey Cuellar; Josephine Malik; Gretchen Benitez; Shady Wilkins; Dc Sims; Chuy Todd; Anne Marie Correa; Mian Mina; Rupa Kim; Stephanie Escobar; Berenice Sahu; Freda Lucero; Vivi Escalante; Ke Paul; Dereje Waite; Yareli Miller; Hong Herrera Jr; Junior Cueto Other Interventions: Discharge Summary Assessment (RN) Last Done: 08/12/23 17:07
== END 2023-08-12 17:35 | disposition home or self-care (01) | DRG 392 ==
LOC: ED 19:07 → 3E 22:33
DX: M19.90 Unspecified osteoarthritis, unspecified site; R00.1 Bradycardia, unspecified; N40.0 Benign prostatic hyperplasia without lower urinary tract symptoms; R73.03 Prediabetes; K21.9 Gastro-esophageal reflux disease without esophagitis; F17.210 Nicotine dependence, cigarettes, uncomplicated; K52.9 Noninfective gastroenteritis and colitis, unspecified; K56.600 Partial intestinal obstruction, unspecified as to cause